=== PATIENT | female | born 1955 | race Caucasian/White ===

== ENCOUNTER → 2016-10-31 | Outpatient (CLI) | payer OTHER ==
[~2016-10-31] VITALS: Ht 157.5 cm; Wt 97.5 kg
--- NOTE | 2016-10-31 15:07 | RAD ---
Indication right breast mass highly suspect for malignancy. Note is made of recent diagnostic studies targeted to the right breast. Preliminary imaging was performed. Preliminary imaging was targeted to the 12:00 position of the breast. A hypoechoic shadowing vascular mass measuring approximately 2 cm in greatest dimension, highly suspect for malignancy, was identified. Injection Molding Machine Tender ultrasound images were saved. Subsequently preliminary images of the right axilla were obtained. Enlarged lymph nodes in the right axilla were seen. Image guided breast biopsy and axillary biopsy was discussed with the patient. The risks of infection and bleeding were outlined. The possibility of damage to nerves and/or blood vessels was discussed. The patient understood the risks associated with the procedure and wished to proceed. Initially the breast mass was approached. The skin was prepped and draped in the routine fashion. During this skin preparation the axilla was also cleansed. Local anesthesia was accomplished with 1% lidocaine. A 14-gauge coaxial biopsy system was utilized. Under ultrasound guidance 4 core samples were obtained. Following the breast biopsy a clip was deployed at the biopsy site. Subsequently the right axilla was approached. A separate needle was utilized and local anesthesia was accomplished with 1% lidocaine. An 18-gauge coaxial biopsy system was utilized. Under ultrasound guidance 4 core samples were obtained. The retrieved breast and axillary tissue was placed in separate formaldehyde cups and transferred to pathology. The patient tolerated the biopsy procedures unremarkably. Following the biopsy the patient was transferred to a dedicated mammographic suite and conventional mammographic images were obtained. Note is made of the biopsy clip appropriately positioned centrally in the dominant mass in the right breast. IMPRESSION: Successful ultrasound-guided biopsy of mass in the right breast and one of enlarged lymph nodes in the right axilla
--- NOTE | 2016-11-01 15:16 | PATHOLOGY ---
PATHOLOGY REPORT * * * * * * * * FINAL DIAGNOSIS: A. Breast, "right breast biopsy": - INFILTRATING DUCTAL CARCINOMA GRADE II, MEASURING 1.5 CM IN GREATEST DIMENSION. -Specimen type: biopsy -Tumor site: right breast -Tumor quantitation: 1.5cm -Histologic type: infiltrating ductal carcinoma -Histologic grade: 2 -Tubules, nuclei and mitoses: 3,2,1 -LVSI: none -Microcalcifications: none -Markers: ordered -Block: A1 - See comment. B. Soft tissue, "axillary nodule": - INFILTRATING DUCTAL CARCINOMA GRADE II, MEASURING 1.5 CM IN GREATEST DIMENSION. - 99% OF THE BIOPSY CONSISTS OF THE TUMOR, VERY FEW LYMPHOCYTES IDENTIFIED. - Suggest radiological and clinical correlation. - See comment COMMENT: This case is also reviewed by Dr. Brooke Auguste. This case was discussed with Dr. Jose Manuel Zamora on 11/01/2016. Predictive breast markers are ordered on block A1, and an additional report will follow. (SHA:[facility]; 11/01/2016) PROCEDURE REPORT (Order Date: 11/01/2016 13:53) COMMENT: Quantitative image analysis was performed on block A1. Please see next page for scanned image of results. PATHOLOGIST: Mame Soriano M.D. REPORT ELECTRONICALLY SIGNED BY: Mame Soriano M.D. DATE/TIME: 11/06/2016 10:25 REPORT ELECTRONICALLY SIGNED BY: Deon Daily M.D. DATE/TIME: 11/01/2016 15:15 * * * * * * * * GROSS PATHOLOGY: A. Received in formalin, labeled "Sheree Fulks", right breast" is a 1.8 x 0.8 x 0.2 cm aggregate of ferraro-yellow cylindrical fatty soft tissue cores. The specimen is submitted entirely in cassette A1. B. Received in formalin, labeled "Sheree Fulks, right axilla" is a 1.5 x 0.4 x 0.1 cm aggregate of white-ferraro cylindrical soft tissue cores. The specimen is submitted entirely in cassette B1. [place] [place] INITIAL CPT CODE(S): A; 39072, 81366(4) B; 02888 Professional services performed by [facility] at [address] [address] Technical services performed by [facility] at [address] [place] [address], [facility] [address] [place] [address]. SPECIMEN(S) RECEIVED: A.Right breast biopsy B.Axillary nodule CLINICAL HISTORY: Right breast and axillary nodule PATIENT: SHEREE WHITE /AGE: 911/03/1955 (Age: 60) PATIENT #: [id number] ALT CASE #: SPECIMEN COLLECTION DATE: 10/31/2016 SPECIMEN RECEIVED DATE: 10/31/2016 [facility] - [address] [place] [address] - PHONE: [phone] * * * END OF REPORT * * *
== END | disposition home or self-care (01) ==
LOC: US 12:26
PROVIDERS: ATTEND Surgery
DX: N63 Unspecified lump in breast (principal); I10 Essential (primary) hypertension
CPT/HCPCS: 19081; 76942; 88305; 88361; C1713; G0206; 77065

== ENCOUNTER 2016-12-11 08:03 | Day surgery (SDC) | payer OTHER ==
[~2016-12-11] VITALS: Ht 157.5 cm; Wt 97.5 kg
[~2016-12-11 08:03] MED LIST: AMLO10TA2 PO; ASPI-630 PO; HEPARIN SODIUM 5,000 UNIT in IV NORMAL SALINE 500ML BAG 500 ML IRR ONE; HYDROmorphone 2 MG/ML VIAL IV PRN; IV RINGERS,LACTATED 1000ML 1,000 ML IV SCH; LIDOCAINE 1% PF 2 ML VIAL. ID PRN; LISI1TAB5 PO; LORA10TA3 PO; LOVA20TA2 PO; MORPHINE SULFATE 2 MG/ML DISP.SYRIN. IV PRN; ONDANSETRON PF 4 MG/2 ML VIAL. IV PRN; PROCHLORPERAZINE 10 MG/2 ML VIAL. IV PRN; RANI150T2 PO; fentaNYL PF VIAL 100 MCG/2 ML VIAL IV PRN
[2016-12-11] MEDS ORDERED: LIDOCAINE 1% 20 ML VIAL. ONE (08:05)
[2016-12-11] MEDS ORDERED: PROPOFOL 20 ML IV ONE ×2 (08:26→09:35)
[2016-12-11] MEDS ORDERED: LIDOCAINE 2% PF Vial for OR 5 ML VIAL. ONE (08:26)
[2016-12-11] MEDS ORDERED: fentaNYL PF VIAL 100 MCG/2 ML VIAL ONE (08:26)
[2016-12-11] MEDS ORDERED: ePHEDrine PF IN SALINE 50 MG/5 ML DISP.SYRIN IV ONE ×2 (09:32→09:56)
[2016-12-11] MEDS ORDERED: ONDANSETRON PF 4 MG/2 ML VIAL. ONE (09:55)
[2016-12-11] MEDS ORDERED: PHENYLEPHRINE in 0.9% NACL PF 1 MG/10 ML DISP.SYRIN. IV ONE (10:03)
--- NOTE | 2016-12-11 10:32 | DISCH ---
DISCHARGE INSTRUCTIONS Condition on Discharge Condition on Discharge: Stable Activity After Discharge Activity Instructions for Disc: Other, see below Diet after Discharge Diet after Discharge: Regular Wound Incision Care Wound/Incision Care: Other, see below (keep port dressing clean and dry) Follow-Up Follow up with: Oncology office, call for appt NO LAY MD Dec 11, 2016 10:32
--- NOTE | 2016-12-11 10:35 | PDOC4 ---
Operative Note Operative Note Operative Note: Preoperative Diagnosis: Postoperative Diagnosis: Same Procedure: Placement of Power Port-A-Cath using SonoSite guidance Surgeon: Jake Anesthesia: Gen. EBL: 10 mL Specimen: None Drains: None Complications: None Indication: The patient is a 61 year old female who was recently diagnosed with right breast cancer. A request was made for placement of a Port-A-Cath to allow for chemotherapy treatment. The details and risks of the procedure were discussed. The risks include bleeding, infection, vessel injury, pneumothorax, pain, anesthetic risk, port, catheter or tubing malfunction or dysfunction, potential need for additional surgery or procedure. The patient understands and would like to proceed. Description: The patient was placed supine on the operating table and general anesthesia was performed. The bilateral neck and chest were prepped with ChloraPrep and draped in a standard surgical manner. With SonoSite ultrasound guidance the left internal jugular vein was readily identified and appeared patent. Entry was made into the vein with the skinny introducer needle under ultrasound guidance. The skinny guidewire passed readily into the central venous system. A small incision was made at the skin exit site. The skinny sheath was then placed over the guidewire. The larger guidewire was then placed within the sheath into the central venous system. Intraoperative fluoroscopy confirmed good position of the guidewire in the central venous system. The dilator and sheath were then placed over the guidewire. The catheter portion was then inserted into the central venous system and visualized using fluoroscopy. A separate left upper chest skin incision was made with a scalpel. A subcutaneous pocket was developed with cautery of sufficient size to accommodate the port. The catheter was then tunneled subcutaneously to the level of the newly formed pocket. Using fluoroscopy the catheter was positioned with the tip in the distal superior vena cava. The catheter was then cut and assembled to the port. The port was then secured to the chest wall with two 2-0 Prolene sutures. Using the Marino needle the port readily aspirated and flushed without difficulty. Fluoroscopy confirmed good positioning of the catheter with no twists or kinks. The subcutaneous tissue was approximated with 3-0 Vicryl. The skin was then closed with 4-0 Monocryl. A sterile OpSite dressing was then applied. The patient tolerated the procedure well and was sent to the recovery room in stable condition. At the end of the case all counts were correct. NO LAY MD Dec 11, 2016 10:35
[2016-12-11] MEDS ORDERED: HYDR-971 PO (11:27)
[2016-12-11] MEDS ORDERED: HYDROcodone/APAP 5/325MG 1 TAB TABLET PO PRN (11:45)
--- NOTE | 2016-12-11 12:12 | RAD ---
Portable chest, 12/11/2016: History: Postop Port-A-Cath placement Comparison is made to a study from 07/15/2008. A left Port-A-Cath is now in place extending into the superior vena cava. The heart size and pulmonary vascularity are normal. No pulmonary infiltrates are seen. There is no evidence of pleural fluid or pneumothorax. Mild spurring is present in the spine. IMPRESSION: 1. The left Port-A-Cath extends into the superior vena cava. 2. No acute cardiopulmonary abnormality is detected.
[2016-12-11 12:15] VITALS: BP 101/63
== END 2016-12-11 12:30 | disposition home or self-care (01) ==
LOC: SURG 08:03
PROVIDERS: ATTEND Surgery
DX: C50.911 Malignant neoplasm of unspecified site of right female breast (principal); I25.10 Atherosclerotic heart disease of native coronary artery without angina pectoris; E78.00 Pure hypercholesterolemia, unspecified; I10 Essential (primary) hypertension; K21.9 Gastro-esophageal reflux disease without esophagitis; M19.91 Primary osteoarthritis, unspecified site; Z72.89 Other problems related to lifestyle; Z98.51 Tubal ligation status; Z87.39 Personal history of other diseases of the musculoskeletal system and connective tissue; Z87.891 Personal history of nicotine dependence
CPT/HCPCS: 36556; 71010; C1788; J0690; J1644; J2370; J2405; J2704; J3010; J7040; 36561; J2001

== ENCOUNTER → 2016-12-13 | Outpatient (CLI) | payer MEDICAID, OTHER ==
[2016-12-11 12:15] VITALS: BP 101/63
[~2016-12-13] MED LIST changes: -HEPARIN SODIUM 5,000 UNIT in IV NORMAL SALINE 500ML BAG 500 ML IRR ONE; +HYDR-971 PO; -HYDROmorphone 2 MG/ML VIAL IV PRN; +IOHEXOL 240 MG/ML 50ML VIAL. PO ONE; +IOHEXOL 300 MG/ML 75 ML VIAL IV ONE; -IV RINGERS,LACTATED 1000ML 1,000 ML IV SCH; -LIDOCAINE 1% PF 2 ML VIAL. ID PRN; -MORPHINE SULFATE 2 MG/ML DISP.SYRIN. IV PRN; -ONDANSETRON PF 4 MG/2 ML VIAL. IV PRN; -PROCHLORPERAZINE 10 MG/2 ML VIAL. IV PRN; -fentaNYL PF VIAL 100 MCG/2 ML VIAL IV PRN
--- NOTE | 2016-12-13 12:52 | RAD ---
INDICATION: MALIGNANT NEOPLASM CENTRAL PORTION OF R BREAST COMPARISON: CT abdomen from 07/08/2005 TECHNIQUE: Axial CT images were obtained through the chest, abdomen and pelvis with intravenous contrast. FINDINGS: Chest: Within the partially visualized right breast there is a masslike structure identified superiorly measuring up to approximately 3.3 cm. Within the right axillary region there are some enlarged lymph nodes and a masslike structure measuring up to about 40 x 26 mm. Skin thickening of the right breast is seen. Left-sided port with tip in the SVC. Sub-4 mm nodule left upper lung along the fissure. No evidence of pneumothorax or focal airspace consolidation. Calcific atherosclerosis without thoracic aortic aneurysm. There may be some narrowing of the proximal aspect of the right brachiocephalic artery. There is a lucent lesion on the left side of the T9 vertebral body measuring up to 1.6 cm. There is also suspicion of a lucent lesion infiltrating the marrow of the T8 vertebral body measuring up to about 2 cm. Abdomen and pelvis: Severe calcific atherosclerosis without abdominal aortic aneurysm. No intrahepatic bile duct dilation or definite worrisome mass. No peripancreatic edema. Spleen unremarkable. No left-sided hydronephrosis. Urinary bladder is partially distended. Suspected fibroids within the uterus with some calcifications within. No right-sided hydronephrosis. Appendix does not appear inflamed. No dilated loops of bowel to suggest obstruction. Degenerative changes the spine. At the anterior aspect of the right humeral head there is a small lucent focus inferiorly measuring about 5 x 1 mm. There are some regions of heterogeneity within the marrow. Lucent lesion anterior aspect of L1 measuring up to about 9 mm. IMPRESSION: Masslike density is seen within the right breast in this patient with known mass within the region. There is also subcutaneous thickening of the skin within the right breast which could be secondary to neoplastic causes or posttreatment changes. Enlarged lymph nodes within the right axilla with a right axillary mass. Given the patient's known right breast mass this is concerning for axillary lymph node involvement. Within the thoracic and lumbar spine there are some lucent lesions identified. These have an indeterminate appearance and although it is possible that a benign lesion such as hemangioma can have this appearance, neoplastic causes for metastatic disease is in the differential for this finding. Further workup options include either bone scan or MRI. In addition there is a possible tiny lucent lesion at the anterior aspect of the right proximal femur although this could be degenerative in nature as well. Severe calcific atherosclerosis. Fibroid uterus. Tiny pulmonary nodule. Follow-up will be needed to ensure no growth given the patient's history. PQRS Compliance Statement: One or more of the following individualized dose reduction techniques were utilized for this examination: 1. Automated exposure control 2. Adjustment of the mA and/or kV according to patient size 3. Use of iterative reconstruction technique
--- NOTE | 2016-12-13 13:52 | RAD ---
INDICATION:Staging breast cancer COMPARISON: CT from earlier same day FINDINGS: 27 mCi technetium 99 M MDP injected intravenously. Time was allowed for osseous uptake and scintigraphic images were obtained of the osseous structures. There is expected radiotracer uptake within the osseous structures as well as urinary excretion. There is some increased radiotracer uptake within the right breast which could be secondary to the patient's known lesion within the area. At the right side of the calvarium posteriorly there is a small focus of increased radiotracer uptake. There is some patchy uptake seen within the spine both within the thoracic region as well as increased uptake seen at the lower lumbar spine. There is a focus of increased radiotracer uptake in the left maxillary region. Foci of increased radiotracer uptake are seen within the bilateral elbows. Focus of increased radiotracer uptake is seen within the midshaft of the right humerus. Multiple foci of increased radiotracer uptake are seen within the lower extremities including adjacent to the knee bilaterally as well as within the bilateral ankle and foot. IMPRESSION: Multiple foci of increased radiotracer uptake are seen within the major joints including the bilateral knees, elbows, feet and ankles. This could be increased uptake related to degenerative changes but it may be helpful to obtain dedicated imaging of the region to ensure that there is not an alternative causes such as a lesion in the area. Focus of increased radiotracer uptake in the left maxillary region. There is also a focus of increased radiotracer uptake in the right side of the calvarium posteriorly. Would obtain dedicated cross-sectional imaging through the area with CT to ensure that there is not lesions within the area contributing to this appearance. There is some patchy uptake seen within the thoracic and lumbar spine. This could be degenerative in nature but given the lucent lesion seen in the thoracic and lumbar spine on CT would consider obtaining a thoracic and lumbar spine MRI with and without contrast to further evaluate and ensure that these lucent lesions are not from metastatic disease. Focus of increased radiotracer uptake is seen within the right humerus. Would obtain dedicated imaging of the humerus to ensure that there is not a lesion in this area.
== END | disposition home or self-care (01) ==
LOC: NM 07:22
PROVIDERS: ATTEND Internal Medicine Hematology & Oncology
DX: N63.10 Unspecified lump in the right breast, unspecified quadrant (principal); C50.911 Malignant neoplasm of unspecified site of right female breast; I70.8 Atherosclerosis of other arteries; D25.9 Leiomyoma of uterus, unspecified; R59.9 Enlarged lymph nodes, unspecified; Z17.0 Estrogen receptor positive status [ER+]
CPT/HCPCS: 71260; 74177; 78306; 96374; A9503; Q9966; Q9967

== ENCOUNTER → 2016-12-16 | Outpatient (CLI) | payer OTHER ==
[2016-12-11 12:15] VITALS: BP 101/63
[~2016-12-16] MED LIST changes: -IOHEXOL 240 MG/ML 50ML VIAL. PO ONE; -IOHEXOL 300 MG/ML 75 ML VIAL IV ONE
--- NOTE | 2016-12-16 10:01 | CARD ---
APPROVED REPORT EXAM: Two-dimensional and M-mode echocardiogram with Doppler and color Doppler. Other Information Quality : Good INDICATION Breast Cancer LEFT VENTRICLE The left ventricular systolic function is normal and the ejection fraction is within normal range. Th e Ejection Fraction is 60-65%. There is normal LV segmental wall motion. RIGHT VENTRICLE The right ventricle is normal size. The right ventricular systolic function is normal. ATRIA The left atrium size is normal. The right atrium size is normal. GREAT VESSELS The aortic root is normal in size. PERICARDIAL EFFUSION There is no evidence of significant pericardial effusion. Critical Notification Critical Value: No <Conclusion> The left ventricular systolic function is normal and the ejection fraction is within normal range. Th e Ejection Fraction is 60-65%. There is normal LV segmental wall motion. Mildly decreased global longitudinal strain values, if there are plans for continued chemotherapy, co nsider repeat echo in 3 months, otherwise, routine f/u.
== END ==
LOC: ECHO 08:28
PROVIDERS: ATTEND Internal Medicine Hematology & Oncology
DX: C50.111 Malignant neoplasm of central portion of right female breast (principal); Z17.0 Estrogen receptor positive status [ER+]
CPT/HCPCS: 93308

== ENCOUNTER 2017-01-22 06:59 | Observation (INO) | payer OTHER ==
[2017-01-22] VITALS (7 sets, daily range): BP systolic 132–177; BP diastolic 59–78
[~2017-01-22] VITALS: Ht 157.5 cm; Wt 99.5 kg
[2017-01-22] MEDS ORDERED: ONDANSETRON PF 4 MG/2 ML VIAL. IV PRN ×2 (07:00→11:45)
[2017-01-22] MEDS ORDERED: IV RINGERS,LACTATED 1000ML 1,000 ML IV SCH (07:00)
[2017-01-22] MEDS ORDERED: PROCHLORPERAZINE 10 MG/2 ML VIAL. IV PRN (07:00)
[2017-01-22] MEDS ORDERED: fentaNYL PF VIAL 100 MCG/2 ML VIAL IV PRN (07:00)
[2017-01-22] MEDS ORDERED: LIDOCAINE 1% PF 2 ML VIAL. ID PRN (07:00)
[2017-01-22] MEDS ORDERED: HYDROmorphone 2 MG/ML VIAL IV PRN ×2 (07:00→11:45)
[2017-01-22] MEDS ORDERED: ISOSULFAN BLUE 50 MG/5 ML VIAL. SQ ONE (07:12)
[2017-01-22] MEDS ORDERED: LIDOCAINE 2% PF Vial for OR 5 ML VIAL. ONE (08:12)
[2017-01-22] MEDS ORDERED: ONDANSETRON PF 4 MG/2 ML VIAL. ONE (08:12)
[2017-01-22] MEDS ORDERED: PROPOFOL 20 ML IV ONE (08:12)
[2017-01-22] MEDS ORDERED: DEXAMETHASONE SOD PHOS 20 MG/5 ML VIAL. ONE (08:12)
[2017-01-22] MEDS ORDERED: fentaNYL PF VIAL 100 MCG/2 ML VIAL ONE (08:12)
[2017-01-22] MEDS ORDERED: MIDAZOLAM HCL/PF 2 MG/2 ML VIAL. ONE (08:13)
[2017-01-22] MEDS ORDERED: PHENYLEPHRINE in 0.9% NACL PF 1 MG/10 ML DISP.SYRIN. IV ONE (09:29)
[2017-01-22] MEDS ORDERED: SEVOFLURANE > 120 MINUTES. IH ONE (09:43)
[2017-01-22] MEDS: IV 1/2 NORMAL SALINE 1,000 ML IV SCH (11:39)
--- NOTE | 2017-01-22 11:39 | PDOC4 ---
Operative Note Operative Note Operative Note: Preoperative Diagnosis: Metastatic right breast cancer Postoperative Diagnosis: Same Procedure: Right modified radical mastectomy Surgeon: Jake Watters.: Noni BRADSHAW Anesthesia: Gen. EBL: 75 mL Specimen: Right breast, axillary contents to pathology Drains: 19 [place] round Don drain to right chest wall Complications: None Findings: Extensive tumor involvement of breast and axilla, encasement of right axillary vein with tumor Indication: The patient is a 61-year-old female who was diagnosed with right breast cancer. Her full evaluation has shown metastatic disease. There were initial plans for neoadjuvant chemotherapy however even the current situation Dr. Lemus recommended proceeding with surgery. The plan is for right modified radical mastectomy. The details and risks of surgery were discussed with the patient. The risks include bleeding, infection, wound healing problems, anesthetic risk, pain, scar tissue, potential need for additional surgery or procedure. She understands and would like to proceed. Description: The patient was taken to the operating room and placed supine on the operating table. Gen. anesthesia was performed. The right breast and axilla were prepped with ChloraPrep and draped in a standard surgical manner. An elliptical incision was made around the nipple areolar complex extending medially to the axilla. We began developing the superior flap first freeing the breast parenchyma away from the skin. This was carried to the level just below the clavicle. We then in a similar manner developed the inferior flap the skin from the deeper breast tissue with cautery. In a medial to lateral fashion the breast was then taken off of the chest wall using cautery. Several blood vessels that were encountered were readily controlled with cautery. Care was taken to ensure excision of the axillary tail of breast tissue. A stitch was used to corrine the 12 o'clock position of the breast and was sent off to pathology for evaluation. We then began with the axillary dissection. There was obvious palpable firm bulky tumor present in the axilla. We began trying to establish the margins of the axillary dissection. Muscle represented the medial extent of dissection with the latissimus lateral portion. Superiorly however there was fairly extensive tumor extension. With careful dissection it appeared that the tumor casing the axillary vein and not able to be . Given the presence of metastatic disease it did not seem appropriate to resect the vein. With the Harmonic scalpel the contents were divided just below the level of the axillary vein. The remaining involved axillary tissue was freed away from the surrounding tissue and sent off as a specimen. A few blood vessels supplying the contents were ligated with 2-0 Vicryl. Hemostasis was then good. A 19 [place] round Don drain was placed in the right chest wall which exited inferiorly. This was secured to the skin with 2-0 silk. The subcutaneous tissue was closed with interrupted 3-0 Vicryl. The skin was closed with 4-0 Monocryl suture. A sterile OpSite dressing was then applied. The patient tolerated the procedure well and was sent to the recovery room in stable condition. At the end of the case all counts were correct. NO LAY MD Jan 22, 2017 11:39
[2017-01-22] MEDS ORDERED: HYDROcodone/APAP 5/325MG 1 TAB TABLET PO PRN (11:45)
[2017-01-22] MEDS ORDERED: 0.9 % SODIUM CHLORIDE 10 ML DISP.SYRIN. IV PRN (11:45)
[2017-01-22] MEDS: fentaNYL PF VIAL 100 MCG/2 ML VIAL IV PRN ×2 (11:56→12:15)
[2017-01-22] MEDS: MORPHINE SULFATE 2 MG/ML DISP.SYRIN. IV PRN ×2 (12:23→12:44)
[2017-01-22] MEDS: amLODIPine BESYLATE 10 MG TABLET PO SCH (14:22)
[2017-01-22] MEDS: hydroCHLOROthiazide 12.5 MG CAPSULE PO SCH (14:37)
[2017-01-22] MEDS: ASPIRIN CHEWABLE 81 MG TABLET. PO SCH (14:38)
[2017-01-22] MEDS: HYDROcodone/APAP 5/325MG 1 TAB TABLET PO PRN ×2 (14:38→21:04)
[2017-01-22] MEDS: CETIRIZINE HCL 10 MG TABLET. PO SCH (14:38)
[2017-01-22] MEDS: LISINOPRIL 20 MG TABLET PO SCH (14:38)
[2017-01-22] MEDS ORDERED: ATORVASTATIN CALCIUM 10 MG TABLET. PO SCH (21:00)
[2017-01-22] MEDS: FAMOTIDINE 20 MG TABLET. PO SCH (21:01)
[2017-01-23] MEDS: IV 1/2 NORMAL SALINE 1,000 ML IV SCH (00:59)
[2017-01-23 03:00] VITALS: BP 154/92
[2017-01-23] MEDS: HYDROcodone/APAP 5/325MG 1 TAB TABLET PO PRN ×2 (06:39→12:38)
[2017-01-23 07:00] VITALS: BP 148/79
[2017-01-23] MEDS ORDERED: NON FORMULARY ITEM (Lisinopril/Hydrochlorothiazide (Lisinopril-Hctz 20-12.5 Mg Tab) 1 TAB) PO SCH (09:00)
[2017-01-23] MEDS ORDERED: FLU VACC QS2017-18 (36MOS+)/PF 0.5 ML SYRINGE. VAX IM ONE (09:00)
[2017-01-23] MEDS ORDERED: LISINOPRIL 20 MG TABLET PO SCH (09:00)
[2017-01-23] MEDS: FAMOTIDINE 20 MG TABLET. PO SCH (09:03)
[2017-01-23] MEDS: hydroCHLOROthiazide 12.5 MG CAPSULE PO SCH (09:03)
[2017-01-23] MEDS: LISINOPRIL 20 MG TABLET PO SCH (09:05)
[2017-01-23] MEDS: amLODIPine BESYLATE 10 MG TABLET PO SCH (09:05)
[2017-01-23] MEDS: CETIRIZINE HCL 10 MG TABLET. PO SCH (09:06)
[2017-01-23] MEDS: ASPIRIN CHEWABLE 81 MG TABLET. PO SCH (09:06)
[2017-01-23 11:00] VITALS: BP 150/73
--- NOTE | 2017-01-23 12:50 | PDOC ---
PROGRESS NOTES Subjective Subjective doing ok Objective Objective Vital Signs Date Time Temp Pulse Resp B/P (MAP) Pulse Ox O2 Delivery O2 Flow Rate FiO2 01/23/17 12:38 16 Room Air 01/23/17 11:00 98.6 78 150/73 (98) 94 98.6 01/23/17 03:00 2.0 Intake and Output 01/23/17 07:00 Intake Total 1450 ml Output Total 706 ml Balance 744 ml Intake IV Total 1450 ml Output Urine Total 351 ml Drainage Total 280 ml Estimated Blood Loss 75 ml Physical Exam Physical Exam dressing clean and dry, HERLINDA with sanguinous output Assessment Assessment POD 1 R MRM Plan Plan of Care ok to discharge Comment Review of Relevant I have reviewed the following items corrine (where applicable) has been applied. Medications Current Medications Cefazolin Sodium/ Dextrose 50 ml @ 100 mls/hr 1X PREOP PRN IV PRIOR TO SURGERY Last administered on 01/22/17 08:50; Start 01/22/17 at 08:00 Ondansetron HCl (Zofran) 4 mg PRN Q6HRS PRN IV NAUSEA/VOMITING; Start 01/22/17 at 07:00; Stop 01/23/17 at 06:59; Status DC Fentanyl Citrate (Fentanyl 2ml Vial) 25 mcg PRN Q5MIN PRN IV MILD PAIN; Start 01/22/17 at 07:00; Stop 01/23/17 at 06:59; Status DC Fentanyl Citrate (Fentanyl 2ml Vial) 50 mcg PRN Q5MIN PRN IV MODERATE PAIN Last administered on 01/22/17 12:15; Start 01/22/17 at 07:00; Stop 01/23/17 at 06:59; Status DC Morphine Sulfate 1 mg PRN Q10MIN PRN IV SEVERE PAIN Last administered on 12:44; Start 01/22/17 at 07:00; Stop 01/23/17 at 06:59; Status DC Ringer's Solution 1,000 ml @ 30 mls/hr Q24H IV Last administered on 01/22/17 07:44; Start 01/22/17 at 07:00; Stop 01/22/17 at 18:59; Status DC Lidocaine HCl (Xylocaine-Mpf 1% Vial) 2 ml PRN 1X PRN ID IV START; Start at 07:00; Stop 01/23/17 at 06:59; Status DC Hydromorphone HCl (Dilaudid) 0.5 mg PRN Q10MIN PRN IV SEV PAIN, Second choice; Start 01/22/17 at 07:00; Stop 01/23/17 at 06:59; Status DC Prochlorperazine Edisylate (Compazine) 5 mg PACU PRN PRN IV NAUSEA, MRX1 Last administered on 01/22/17t 11:56; Start 01/22/17 at 07:00; Stop 01/23/17 at 06:59 ; Status DC Isosulfan Blue (Isosulfan Blue) 50 mg STK-MED ONCE SQ ; Start 01/22/17 at 07:12 ; Stop 01/22/17 at 07:13; Status DC Dexamethasone Sodium Phosphate (Decadron) 20 mg STK-MED ONCE .ROUTE ; Start 01/22/17 at 08:12; Stop 01/22/17 at 08:13; Status DC Ondansetron HCl (Zofran) 4 mg STK-MED ONCE .ROUTE ; Start 01/22/17 at 08:12; Stop 01/22/17 at 08:13; Status DC Propofol 20 ml @ As Directed STK-MED ONCE IV ; Start 01/22/17 at 08:12; Stop at 08:13; Status DC Lidocaine HCl (Lidocaine Pf 2% Vial) 5 ml STK-MED ONCE .ROUTE ; Start 01/22/17 at 08:12; Stop 01/22/17 at 08:13; Status DC Fentanyl Citrate (Fentanyl 2ml Vial) 100 mcg STK-MED ONCE .ROUTE ; Start at 08:12; Stop 01/22/17 at 08:13; Status DC Midazolam HCl (Versed) 2 mg STK-MED ONCE .ROUTE ; Start 01/22/17 at 08:13; Stop 01/22/17 at 08:14; Status DC Phenylephrine HCl 1 mg STK-MED ONCE IV ; Start 01/22/17 at 09:29; Stop 01/22/17 at 09:30; Status DC Sevoflurane (Ultane) 90 ml STK-MED ONCE IH ; Start 01/22/17 at 09:43; Stop 01/22 at 09:44; Status DC Sodium Chloride (Normal Saline Flush) 3 ml QSHIFT PRN IV AFTER MEDS AND BLOOD DRAWS; Start 01/22/17 at 11:45 Sodium Chloride 1,000 ml @ 75 mls/hr [id number] IV Last administered on 11:39; Start 01/22/17 at 11:39; Stop 01/23/17 at 02:37; Status DC Acetaminophen/ Hydrocodone Bitart (Lortab 5/325) 1 tab PRN Q4HRS PRN PO MILD PAIN; Start 01/22/17 at 11:45 Acetaminophen/ Hydrocodone Bitart (Lortab 5/325) 2 tab PRN Q4HRS PRN PO MODERATE PAIN, SEVERE PAIN Last administered on 01/23/17 12:38; Start 01/22/17 at 11:45 Hydromorphone HCl (Dilaudid) 0.2 mg PRN Q1HR PRN IV PAIN; Start 01/22/17 at 11: 45 Ondansetron HCl (Zofran) 4 mg PRN Q6HRS PRN IV NAUESA, 1ST CHOICE; Start at 11:45 Amlodipine Besylate (Norvasc) 10 mg DAILY PO Last administered on 01/23/17 09: 05; Start 01/22/17 at 15:00 Aspirin (Children'S Aspirin) 81 mg DAILY PO Last administered on 01/23/17 09: 06; Start 01/22/17 at 15:00 Non-Formulary Medication 1 tab DAILY PO ; Start 01/23/17 at 09:00; Status UNV Cetirizine HCl (ZyrTEC) 10 mg DAILY PO Last administered on 01/23/17 09:06; Start 01/22/17 at 15:00 Atorvastatin Calcium (Lipitor) 5 mg QHS PO Last administered on 01/22/17 21:03 ; Start 01/22/17 at 21:00 Famotidine (Pepcid) 20 mg BID PO Last administered on 01/23/17 09:03; Start 01/22/17 at 21:00 Lisinopril (Prinivil) 20 mg DAILY PO ; Start 01/23/17 at 09:00; Stop 01/23/17 at 09:00; Status DC Hydrochlorothiazide (Microzide) 12.5 mg DAILY PO Last administered on 09:03; Start 01/22/17 at 15:00 Lisinopril (Prinivil) 20 mg DAILY PO Last administered on 01/23/17 09:05; Start 01/22/17 at 15:00 Influenza Virus Vaccine Quadrival (Fluarix Quad [id number] Syringe) 0.5 ml ONCE ONCE VAX IM Last administered on 01/23/17 09:10; Start 01/23/17 at 09:00; Stop 01/23/17 at 09:01; Status DC Active Scripts Active Reported Loratadine 10 Mg Tablet 10 Mg PO DAILY Aspirin 81 Mg Tab.chew 81 Mg PO DAILY Ranitidine Hcl 150 Mg Tablet 150 Mg PO BID Lovastatin 20 Mg Tablet 20 Mg PO HS Amlodipine Besylate 10 Mg Tablet 10 Mg PO DAILY Lisinopril-Hctz 20-12.5 Mg Tab (Lisinopril/Hydrochlorothiazide) 1 Each Tablet 1 Tab PO DAILY Vitals/I & O Vital Sign - Last 24 Hours 01/22/17 01/22/17 01/22/17 01/22/17 13:00 13:00 13:15 13:30 Temp 96.8 96.8 96.8 96.8 Pulse 88 88 93 91 Resp 18 18 18 18 B/P (MAP) 177/70 (105) 177/70 (105) 132/64 (86) 173/70 (104) Pulse Ox 97 97 97 97 O2 Delivery Room Air Room Air Room Air Room Air 01/22/17 01/22/17 01/22/17 01/22/17 13:45 14:38 14:38 15:00 Temp 98.1 98.1 Pulse 91 91 76 Resp 18 16 B/P (MAP) 149/70 (96) 149/70 145/59 (87) Pulse Ox 96 97 O2 Delivery Room Air Nasal Cannula Nasal Cannula O2 Flow Rate 2.0 2.0 01/22/17 01/22/17 01/22/17 01/22/17 16:44 17:19 19:00 20:00 Temp 98.1 98.1 Pulse 92 Resp 20 B/P (MAP) 148/78 (101) Pulse Ox 96 100 O2 Delivery Nasal Cannula Nasal Cannula Nasal Cannula O2 Flow Rate 2.0 2.0 2.0 2.0 12/601/22/17 01/23/17 01/23/17 21:04 23:00 03:00 06:39 Temp 98.1 98.7 98.1 98.7 Pulse 96 66 Resp 18 20 18 18 B/P (MAP) 148/75 (99) 154/92 (112) Pulse Ox 100 92 O2 Delivery Nasal Cannula Nasal Cannula Nasal Cannula Room Air O2 Flow Rate 2.0 2.0 2.0 01/23/17 01/23/17 01/23/17 01/23/17 07:00 07:39 09:05 09:05 Temp 96.6 96.6 Pulse 73 73 73 Resp 17 16 B/P (MAP) 148/79 (102) 148/73 148/79 Pulse Ox 99 O2 Delivery Room Air Room Air 01/23/17 01/23/17 11:00 12:38 Temp 98.6 98.6 Pulse 78 Resp 18 16 B/P (MAP) 150/73 (98) Pulse Ox 94 O2 Delivery Room Air Room Air Intake and Output 01/22/17 01/22/17 01/23/17 15:00 23:00 07:00 Intake Total 1450 ml Output Total 125 ml 460 ml 121 ml Balance 1325 ml -460 ml -121 ml NO LAY MD Jan 23, 2017 12:50
--- NOTE | 2017-01-23 12:52 | DISCH ---
DISCHARGE INSTRUCTIONS Condition on Discharge Condition on Discharge: Stable Activity After Discharge Activity Instructions for Disc: Activity as tolerated Diet after Discharge Diet after Discharge: Regular Wound Incision Care Wound/Incision Care: Other, see below (keep dressing clean and dry, home HERLINDA drain care per nurses instructions) Follow-Up Follow up with: Dr Lay in 1 week in office, call for appt [phone] NO LAY MD Jan 23, 2017 12:52
--- NOTE | 2017-01-23 12:54 | PDOC3 ---
Discharge Summary Visit Information Date of Admission: Jan 22, 2017 Date of Discharge: Jan 23, 2017 Admitting Diagnosis: R breast cancer Final Diagnosis R breast cancer Brief Hospital Course Allergies Allergies Coded Allergies Type Severity Reaction Last Updated Verified No Known Drug Allergies 01/22/17 No Vital Signs Vital Signs Date Time Temp Pulse Resp B/P (MAP) Pulse Ox O2 Delivery O2 Flow Rate FiO2 01/23/17 12:38 16 Room Air 01/23/17 11:00 98.6 78 150/73 (98) 94 98.6 01/23/17 03:00 2.0 Brief Hospital Course Ms. Easton is a 61 old female who presented with right breast cancer. She underwent a right modified radical mastectomy on 01/22/17. Her postoperative recovery was uneventful and she was discharged on POD 1. Discharge Information Condition at Discharge: Stable Follow Up: Weeks (1 week) Disposition/Orders: D/C to Home Scheduled Amlodipine Besylate (Amlodipine Besylate), 10 MG PO DAILY, (Reported) Aspirin (Aspirin), 81 MG PO DAILY, (Reported) Lisinopril/Hydrochlorothiazide (Lisinopril-Hctz 20-12.5 Mg Tab), 1 TAB PO DAILY, (Reported) Loratadine (Loratadine), 10 MG PO DAILY, (Reported) Lovastatin (Lovastatin), 20 MG PO HS, (Reported) Ranitidine Hcl (Ranitidine Hcl), 150 MG PO BID, (Reported) Discontinued Medications Hydrocodone/Apap 5-325 ([place] 5-325 Tablet), 1 TAB PO Q4HRS, (Reported) NO LAY MD Jan 23, 2017 12:54
[2017-01-23] MEDS ORDERED: HEPARIN PF 500 UNIT/5 ML DISP.SYRIN. IV ONE (15:45)
--- NOTE | 2017-01-28 10:09 | PATHOLOGY ---
PATHOLOGY REPORT * * * * * * * * FINAL DIAGNOSIS: A. Breast, right modified radical mastectomy: - INVASIVE DUCTAL CARCINOMA, HIGH-GRADE, WITH FOCAL LOBULAR FEATURES, FORMING A TUMOR MASS OF THE JUNCTION OF THE UPPER OUTER AND UPPER INNER QUADRANTS MEASURING UP TO 5.7 CM IN GREATEST DIMENSION. SEE SYNOPTIC REPORT. - INVASIVE CARCINOMA IS APPROXIMATELY 0.4 CM FROM THE CLOSEST ANTEROSUPERIOR MARGIN OF RESECTION. - DEEP MARGIN OF RESECTION NEGATIVE FOR TUMOR. - FOCAL LYMPHOVASCULAR TUMOR INVASION IDENTIFIED. - METASTATIC CARCINOMA INVOLVING INTRAMAMMARY LYMPH NODE OF UPPER OUTER QUADRANT (/). - Fibrocystic changes, focal. - Sclerosing adenosis, focal. B. Right axillary contents: - METASTATIC POORLY DIFFERENTIATED ADENOCARCINOMA, FORMING AN AXILLARY MASS MEASURING 5.7 CM IN GREATEST DIMENSION, WITH EXTENSIVE TUMOR INFILTRATION OF EXTRANODAL SOFT TISSUES, LYMPHOVASCULAR TUMOR INVASION, AND PERINEURAL TUMOR INVASION. - METASTATIC POORLY DIFFERENTIATED ADENOCARCINOMA INVOLVING THREE OF THREE AXILLARY LYMPH NODES (3/3), WITH PERINODAL TUMOR INFILTRATION AND LYMPHOVASCULAR TUMOR INVASION. (JPM:mgr; 01/27/2017) SYNOPTIC CANCER STAGING REPORT CLINICAL Clinical History: Palpable mass Radiologic Finding: Mass or architectural distortion SPECIMEN Procedure: Total mastectomy (including nipple and skin) Lymph Node Sampling: Axillary dissection (partial or complete dissection) Lymph nodes present within the breast specimen (i.e., intramammary lymph nodes) Specimen Laterality: Right TUMOR Primary Tumor Site: Invasive Carcinoma: Upper outer quadrant Upper inner quadrant Presence of Invasive Carcinoma: Histologic Type: Invasive mammary carcinoma of no special type (ductal, not otherwise specified) Histologic Grade (Horn[place] Histologic Score): Glandular (Acinar) / Tubular Differentiation: Score 3 (< 10% of tumor area forming glandular / tubular structures) Nuclear Pleomorphism: Score 3 (Vesicular nuclei, often with prominent nucleoli, exhibiting marked variation in size and shape, occasionally with very large and bizarre forms) Mitotic Rate: Score 2 (4-7 mitoses per mm2) Overall Grade: Grade 3 (scores of 8 or 9) Ductal Carcinoma In Situ (DCIS): DCIS is present Negative for extensive intraductal component (EIC) Architectural Patterns: Solid Nuclear Grade (see Table 2 in CAP Protocol): Grade III (high) Necrosis: Present, central (expansive "comedo" necrosis) Lobular Carcinoma In Situ (LCIS): Not identified Tumor Size: Size of Largest Invasive Carcinoma: Greatest dimension of largest focus of invasion > 1 mm Greatest Dimension (mm): 57 Accessory Tumor Findings Lymph-Vascular Invasion: Present Dermal Lymph-Vascular Invasion: Not identified Microcalcifications: Present in nonneoplastic tissue Treatment Effect: Response to Presurgical (Neoadjuvant) Therapy: No known presurgical therapy MARGINS Invasive Carcinoma: Margins uninvolved by invasive carcinoma Distance from Closest Margin: Distance (specify in mm): 4 Closest Uninvolved Margin: Other (specify margin): Anterosuperior margin. Ductal Carcinoma In Situ (DCIS): Margins uninvolved by DCIS (DCIS present in specimen) Distance of DCIS from Closest Margin (mm): Distance is > 10 mm Closest Uninvolved Margin(s): Other (specify margin): Anterosuperior margin. LYMPH NODES Regional Lymph Nodes: Number of Lymph Node(s) Examined (sentinel and nonsentinel): Number cannot be determined: At least 5; There is a large axillary mass which likely represents matted lymph nodes with extensive perinodal extension. Lymph Node Involvement: Number of Lymph Nodes with Macrometastases (> 2 mm): At least: 5 Number of Lymph Nodes with Micrometastases (> 0.2 mm to 2 mm and / or > 200 cells): Specify number: 0 Number of Lymph Nodes with Isolated Tumor Cells (<= 0.2 mm and <= 200 cells): Specify number: 0 Size of Largest Tumor Deposit: Specify (mm): 57 Extranodal Extension: Present STAGE (PTNM) Primary Tumor (Invasive Carcinoma) (pT): pT3: Tumor > 50 mm in greatest dimension Category (pN): pN2a: Metastases in 4 to 9 axillary lymph nodes (at least 1 tumor deposit greater than 2 mm) # ADDITIONAL FINDINGS Additional Pathologic Findings: See diagnoses. REPORT ELECTRONICALLY SIGNED BY: Tripp Blanco M.D. DATE/TIME: 01/28/2017 10:08 * * * * * * * * GROSS PATHOLOGY: A. Received in formalin labeled "right breast" and consists of a 1850 g breast specimen oriented per requisition slip with "stitch at 12:00" with breast tissue measuring 27 cm L-M, 24 cm S-I, and 8.5 cm A-P. The anterior skin ellipse measures 26.0 x 15.0 cm. The everted nipple measures 1.6 cm in diameter. The deep margin is intact with no obvious skeletal muscle identified. The specimen is inked as follows posterior black, anterosuperior blue, and anteroinferior green. Sectioning reveals a solid farrar white mass with ill-defined borders at approximately 12:00 (border of upper outer and upper inner quadrant) that measures 5.7 x 5.5 x 4.2 cm. The following measurements of mass to margins are obtained: Anterosuperior 0.3 cm, superior 8.0 cm, posterior 4.0 cm, anterior 2.0 cm, and all other margins 5.0 cm or greater. There is a small white nodule identified in the upper outer quadrant that measures 0.4 x 0.2 x 0.3 cm and grossly clears all margins by 3.5 cm or greater. The large mass and nodule are by a distance of 7.0 cm. The remaining breast parenchyma is farrar-white, pink, with no other masses or lesions identified. The cold ischemic time is 1 minute. The formalin fixation time is approximately 36 hours. Photo Intern sections are submitted [id number]. A1 nipple A2 anterosuperior and anteroinferior cutaneous margins A3-A4 large mass with relationship to anterosuperior margin A5 additional large mass A6 deep margin nearest larger mass A7 nodule in upper outer quadrant A8 upper outer quadrant A9 lower outer quadrant A 10 lower inner quadrant B. Received in formalin labeled "right axillary contents" and consists of a 101 g, 8.5 x 8.2 x 5.3 cm portion of fibroadipose tissue. Sectioning reveals a large lobulated solid farrar white lymph node candidate versus matted lymph nodes that measure 5.7 x 5.4 x 3.5 cm. There are 2 additional solid white lymph node candidates identified that measure 1.9 x 1.2 x 1.0 cm and 2.6 x 2.3 x 1.9 cm. No additional lymph node candidates, masses, or lesions are identified. Photo Intern sections are submitted B1-B8. B1-B4 large lymph node candidate, telemarketing sales representative B5-B6 one lymph node candidate B7-B8 one lymph node candidate (ANTIONETTE; 01/23/2017) INITIAL CPT CODE(S): 77619, 17203 Professional services performed [place] [facility] [address] Technical services performed by [facility] at [address] [place] [address], [facility] [address], [place] [address]. SPECIMEN(S) RECEIVED: A.Right breast B.Right axillary contents CLINICAL HISTORY: Right breast cancer PATIENT: YASMANI WHITE /AGE: 911/03/1955 (Age: 61) PATIENT #: [id number] ALT CASE #: SPECIMEN COLLECTION DATE: 01/22/2017 SPECIMEN RECEIVED DATE: 01/22/2017 [facility] - [id number] [place] [address] - PHONE: [phone] * * * END OF REPORT * * *
== END 2017-01-23 16:15 | disposition home or self-care (01) ==
LOC: SURG 06:59 → 4 NORTH 11:39
PROVIDERS: ADMIT Surgery; ATTEND Surgery
DX: C50.911 Malignant neoplasm of unspecified site of right female breast (principal)
CPT/HCPCS: 19307; 90471; 90686; 96374; 97161; G0378; G0379; J0690; J0780; J1100; J2250; J2270; J2370; J2405; J2704; J3010; J7120; Q9968; J2001

== ENCOUNTER → 2017-04-15 | Outpatient (CLI) | payer OTHER | END | disposition home or self-care (01) | LOC: RAD 14:54 | DX: R05 Cough (principal) | CPT/HCPCS: 71046 ==

== ENCOUNTER → 2017-04-22 | Outpatient (CLI) | payer OTHER ==
[2017-04-22] MEDS: IOHEXOL 300 MG/ML 100ML VIAL. IV (09:16)
== END | disposition home or self-care (01) ==
LOC: CT 08:56
DX: R91.1 Solitary pulmonary nodule (principal); R91.8 Other nonspecific abnormal finding of lung field; Z85.3 Personal history of malignant neoplasm of breast; Z90.11 Acquired absence of right breast and nipple; Z98.890 Other specified postprocedural states
CPT/HCPCS: 71260; Q9967

== ENCOUNTER → 2017-05-28 | Outpatient (CLI) | payer OTHER ==
[~2017-05-28] MED LIST changes: -AMLO10TA2 PO; -ASPI-630 PO; +HEPARIN PF 500 UNIT/5 ML DISP.SYRIN. IV; -HYDR-971 PO; +IOHEXOL 240 MG/ML 50ML VIAL. PO; +IOHEXOL 300 MG/ML 100ML VIAL. IV; -LISI1TAB5 PO; -LORA10TA3 PO; -LOVA20TA2 PO; -RANI150T2 PO
== END | disposition home or self-care (01) ==
LOC: NM 14:30
DX: C50.111 Malignant neoplasm of central portion of right female breast (principal); C79.51 Secondary malignant neoplasm of bone; I10 Essential (primary) hypertension; E11.9 Type 2 diabetes mellitus without complications; R91.8 Other nonspecific abnormal finding of lung field; Z17.0 Estrogen receptor positive status [ER+]; Z90.11 Acquired absence of right breast and nipple; Z87.891 Personal history of nicotine dependence; Z85.3 Personal history of malignant neoplasm of breast
CPT/HCPCS: 71260; 74177; 78306; 96374; A9503

== ENCOUNTER → 2017-08-28 | Outpatient (CLI) | payer OTHER ==
[2017-08-28] MEDS: IOHEXOL 240 MG/ML 50ML VIAL. PO (08:45)
[2017-08-28] MEDS: IOHEXOL 300 MG/ML 100ML VIAL. IV (08:45)
== END | disposition home or self-care (01) ==
LOC: NM 11:09
DX: C50.111 Malignant neoplasm of central portion of right female breast (principal); C79.51 Secondary malignant neoplasm of bone; I10 Essential (primary) hypertension; E11.9 Type 2 diabetes mellitus without complications; E78.5 Hyperlipidemia, unspecified; E78.00 Pure hypercholesterolemia, unspecified; Z87.891 Personal history of nicotine dependence; Z17.0 Estrogen receptor positive status [ER+]; Z79.01 Long term (current) use of anticoagulants
CPT/HCPCS: 71260; 74177; 78306; 96374; A9503; Q9966; Q9967

== ENCOUNTER 2017-09-28 18:24 | Emergency (ER) | payer OTHER ==
[~2017-09-28] VITALS: Ht 157.5 cm; Wt 93.4 kg
[~2017-09-28 18:24] MED LIST changes: +AMLO10TA2 PO; +ASPI-630 PO; -HEPARIN PF 500 UNIT/5 ML DISP.SYRIN. IV; +HYDR-2758 PO; +HYDR-971 PO; -IOHEXOL 240 MG/ML 50ML VIAL. PO; -IOHEXOL 300 MG/ML 100ML VIAL. IV; +LETR2.5T18 PO; +LISI1TAB5 PO; +LORA10TA3 PO; +LOVA20TA2 PO; +PALB125C PO; +RANI150T2 PO
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
[2017-09-28] MEDS ORDERED: IV NORMAL SALINE 1000ML BAG 1,000 ML IV ONE (18:45)
[2017-09-28] MEDS ORDERED: ONDANSETRON PF 4 MG/2 ML VIAL. IV ONE (18:45)
[2017-09-28] MEDS ORDERED: fentaNYL PF VIAL 100 MCG/2 ML VIAL IV ONE ×2 (18:45→20:00)
[2017-09-28] MEDS ORDERED: silver sulfADIAZINE 1% CREAM 25GM TUBE. TP ONE (18:45)
[2017-09-28] MEDS ORDERED: OXYC-323 PO (20:18)
[2017-09-28] MEDS ORDERED: ONDA4TAB7 PO (20:18)
[2017-09-28] MEDS ORDERED: SILV20CR14 TP (20:18)
[2017-09-28 20:30] VITALS: BP 131/65
== END 2017-09-28 20:45 | disposition home or self-care (01) ==
LOC: ER 18:24
DX: T21.21XA Burn of second degree of chest wall, initial encounter (principal); T21.22XA Burn of second degree of abdominal wall, initial encounter; X12.XXXA Contact with other hot fluids, initial encounter; Y93.89 Activity, other specified; Y99.8 Other external cause status; Y92.89 Other specified places as the place of occurrence of the external cause
CPT/HCPCS: 16020; 96374; 96375; 96376; 99284; J2405; J3010; J7030

== ENCOUNTER 2017-09-30 14:21 | Emergency (ER) | payer OTHER ==
[~2017-09-30] VITALS: Ht 157.5 cm; Wt 93.4 kg
[~2017-09-30 14:21] MED LIST changes: +ONDA4TAB7 PO; +OXYC-323 PO; +SILV20CR14 TP
[2017-09-30 14:57] VITALS: BP 174/72
[2017-09-30] MEDS ORDERED: SILV20CR14 TP (15:33)
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
== END 2017-09-30 15:52 | disposition home or self-care (01) ==
LOC: ER 14:21
DX: T21.21XD Burn of second degree of chest wall, subsequent encounter (principal); T21.22XD Burn of second degree of abdominal wall, subsequent encounter; I10 Essential (primary) hypertension; E78.00 Pure hypercholesterolemia, unspecified; X08.8XXD Exposure to other specified smoke, fire and flames, subsequent encounter
CPT/HCPCS: 99283

== ENCOUNTER → 2017-10-23 | Outpatient (CLI) | payer OTHER ==
[2017-09-30 14:57] VITALS: BP 174/72
[~2017-10-23] MED LIST changes: -AMLO10TA2 PO; +AMLO10TA6 PO
== END | disposition home or self-care (01) ==
LOC: PMGWOUND 08:50
PROVIDERS: ATTEND Emergency Medicine Undersea and Hyperbaric Medicine
DX: T21.31XA Burn of third degree of chest wall, initial encounter (principal); T31.10 Burns involving 10-19% of body surface with 0% to 9% third degree burns; S21.032A Puncture wound without foreign body of left breast, initial encounter; S21.031A Puncture wound without foreign body of right breast, initial encounter; I10 Essential (primary) hypertension; K21.9 Gastro-esophageal reflux disease without esophagitis; E78.5 Hyperlipidemia, unspecified; E78.00 Pure hypercholesterolemia, unspecified; I25.10 Atherosclerotic heart disease of native coronary artery without angina pectoris; E66.01 Morbid (severe) obesity due to excess calories; Z68.36 Body mass index [BMI] 36.0-36.9, adult; Z87.891 Personal history of nicotine dependence; Z85.3 Personal history of malignant neoplasm of breast; X19.XXXA Contact with other heat and hot substances, initial encounter; Y93.89 Activity, other specified; Y92.89 Other specified places as the place of occurrence of the external cause; Y99.8 Other external cause status
CPT/HCPCS: 97597

== ENCOUNTER → 2017-10-30 | Outpatient (CLI) | payer OTHER ==
[2017-09-30 14:57] VITALS: BP 174/72
== END | disposition home or self-care (01) ==
LOC: PMGWOUND 08:32
PROVIDERS: ATTEND Emergency Medicine Undersea and Hyperbaric Medicine
DX: T81.31XD Disruption of external operation (surgical) wound, not elsewhere classified, subsequent encounter (principal); T31.10 Burns involving 10-19% of body surface with 0% to 9% third degree burns; I10 Essential (primary) hypertension; E78.5 Hyperlipidemia, unspecified; E78.00 Pure hypercholesterolemia, unspecified; K21.9 Gastro-esophageal reflux disease without esophagitis; I25.10 Atherosclerotic heart disease of native coronary artery without angina pectoris; E66.01 Morbid (severe) obesity due to excess calories; Z68.36 Body mass index [BMI] 36.0-36.9, adult; Z87.891 Personal history of nicotine dependence; Z85.3 Personal history of malignant neoplasm of breast; X19.XXXD Contact with other heat and hot substances, subsequent encounter
CPT/HCPCS: 99214; G0463

== ENCOUNTER → 2017-11-06 | Outpatient (CLI) | payer OTHER | END | disposition home or self-care (01) | LOC: PMGWOUND 08:33 | PROVIDERS: ATTEND Emergency Medicine Undersea and Hyperbaric Medicine | DX: T21.31XD Burn of third degree of chest wall, subsequent encounter (principal); T31.10 Burns involving 10-19% of body surface with 0% to 9% third degree burns; I10 Essential (primary) hypertension; E78.5 Hyperlipidemia, unspecified; E78.00 Pure hypercholesterolemia, unspecified; I25.10 Atherosclerotic heart disease of native coronary artery without angina pectoris; K21.9 Gastro-esophageal reflux disease without esophagitis; E66.01 Morbid (severe) obesity due to excess calories; Z68.36 Body mass index [BMI] 36.0-36.9, adult; Z87.891 Personal history of nicotine dependence; Z85.3 Personal history of malignant neoplasm of breast; X08.8XXD Exposure to other specified smoke, fire and flames, subsequent encounter | CPT/HCPCS: 99214; G0463 ==

== ENCOUNTER → 2017-11-13 | Outpatient (CLI) | payer OTHER | END | disposition home or self-care (01) | LOC: PMGWOUND 08:36 | PROVIDERS: ATTEND Emergency Medicine Undersea and Hyperbaric Medicine | DX: T21.31XD Burn of third degree of chest wall, subsequent encounter (principal); T31.10 Burns involving 10-19% of body surface with 0% to 9% third degree burns; E11.9 Type 2 diabetes mellitus without complications; I10 Essential (primary) hypertension; E78.5 Hyperlipidemia, unspecified; E78.00 Pure hypercholesterolemia, unspecified; I25.10 Atherosclerotic heart disease of native coronary artery without angina pectoris; K21.9 Gastro-esophageal reflux disease without esophagitis; E66.01 Morbid (severe) obesity due to excess calories; Z68.36 Body mass index [BMI] 36.0-36.9, adult; Z87.891 Personal history of nicotine dependence; Z85.3 Personal history of malignant neoplasm of breast; X08.8XXD Exposure to other specified smoke, fire and flames, subsequent encounter | CPT/HCPCS: 99213 ==

== ENCOUNTER → 2017-11-19 | Outpatient (CLI) | payer OTHER | END | disposition home or self-care (01) | LOC: PMGWOUND 08:33 | PROVIDERS: ATTEND Emergency Medicine Undersea and Hyperbaric Medicine | DX: T21.31XD Burn of third degree of chest wall, subsequent encounter (principal); T31.10 Burns involving 10-19% of body surface with 0% to 9% third degree burns; E11.9 Type 2 diabetes mellitus without complications; I10 Essential (primary) hypertension; E78.00 Pure hypercholesterolemia, unspecified; E78.5 Hyperlipidemia, unspecified; K21.9 Gastro-esophageal reflux disease without esophagitis; I25.10 Atherosclerotic heart disease of native coronary artery without angina pectoris; E66.01 Morbid (severe) obesity due to excess calories; Z68.36 Body mass index [BMI] 36.0-36.9, adult; Z87.891 Personal history of nicotine dependence; Z85.3 Personal history of malignant neoplasm of breast; X08.8XXD Exposure to other specified smoke, fire and flames, subsequent encounter | CPT/HCPCS: 99213 ==

== ENCOUNTER → 2017-11-26 | Outpatient (CLI) | payer OTHER | END | disposition home or self-care (01) | LOC: PMGWOUND 09:01 | PROVIDERS: ATTEND Preventive Medicine Undersea and Hyperbaric Medicine | DX: T21.31XD Burn of third degree of chest wall, subsequent encounter (principal); T31.10 Burns involving 10-19% of body surface with 0% to 9% third degree burns; E11.9 Type 2 diabetes mellitus without complications; I10 Essential (primary) hypertension; E78.5 Hyperlipidemia, unspecified; E78.00 Pure hypercholesterolemia, unspecified; I25.10 Atherosclerotic heart disease of native coronary artery without angina pectoris; K21.9 Gastro-esophageal reflux disease without esophagitis; E66.01 Morbid (severe) obesity due to excess calories; Z68.36 Body mass index [BMI] 36.0-36.9, adult; Z87.891 Personal history of nicotine dependence; Z85.3 Personal history of malignant neoplasm of breast; X08.8XXD Exposure to other specified smoke, fire and flames, subsequent encounter | CPT/HCPCS: 99213 ==

== ENCOUNTER → 2017-12-04 | Outpatient (CLI) | payer OTHER | END | disposition home or self-care (01) | LOC: PMGWOUND 08:28 | PROVIDERS: ATTEND Emergency Medicine Undersea and Hyperbaric Medicine | DX: T21.31XD Burn of third degree of chest wall, subsequent encounter (principal); T31.10 Burns involving 10-19% of body surface with 0% to 9% third degree burns; E11.9 Type 2 diabetes mellitus without complications; I10 Essential (primary) hypertension; E78.00 Pure hypercholesterolemia, unspecified; E78.5 Hyperlipidemia, unspecified; K21.9 Gastro-esophageal reflux disease without esophagitis; I25.10 Atherosclerotic heart disease of native coronary artery without angina pectoris; E66.01 Morbid (severe) obesity due to excess calories; Z68.36 Body mass index [BMI] 36.0-36.9, adult; Z87.891 Personal history of nicotine dependence; Z85.3 Personal history of malignant neoplasm of breast; X08.8XXD Exposure to other specified smoke, fire and flames, subsequent encounter | CPT/HCPCS: 99213 ==

== ENCOUNTER → 2017-12-04 | Outpatient (CLI) | payer OTHER ==
[2017-12-04] MEDS: IOHEXOL 300 MG/ML 100ML VIAL. IV ONE (09:15)
[2017-12-04] MEDS: IOHEXOL 240 MG/ML 50ML VIAL. PO ONE (09:15)
[2017-12-04] MEDS: HEPARIN PF 500 UNIT/5 ML DISP.SYRIN. IV ONE (10:30)
--- NOTE | 2017-12-04 14:28 | RAD ---
CT CHEST ABD PELVIS W/CONTRAST Indication: Breast cancer Technique: Postcontrast CT imaging was performed of the chest, abdomen, pelvis, multiplanar reconstruction images submitted. Oral contrast was also given. One or more of the following individualized dose reduction techniques were utilized for this examination: 1. Automated exposure control 2. Adjustment of the mA and/or kV according to patient size 3. Use of iterative reconstruction technique. Contrast: 75 cc Omnipaque 300 Comparison: August 28, 2017 and May 28, 2017 CHEST: Findings: There is increased infiltrate more medially of the right lower lobe extending to pleural surface. The there is mild linear likely fibrotic change left lower lobe as seen previously. There is no pleural or pericardial effusion or pneumothorax. Thoracic aortic caliber is within normal limits. No new significantly enlarged nodes are identified of the chest. There again has been right mastectomy. Some soft tissue density more laterally extending near the right axillary region is stable in appearance such as seen on axial images 24-35, focus on axial images 28 measuring about 3.9 cm transverse by 2.3 cm AP. There is again T8 compression deformity with associated sclerosis, other heterogeneity of the bones and areas of mixed sclerosis overall similar by CT. There is also degenerative disc disease greatest at mid to inferior thoracic levels. There is left internal jugular port catheter. There is coronary calcification and stent. IMPRESSION: 1. There is increased nonspecific infiltrate more medially of the right lower lobe abutting the pleural surface, otherwise no new discrete pulmonary nodularity or lymphadenopathy. There is stable soft tissue density extending to the right axillary region, previous right mastectomy. There is again evidence of osseous metastatic disease, similar degree of compression deformity of T8. Abdomen pelvis: FINDINGS: There is no new focal lesion identified of the liver. No new abnormality is identified of the pancreas, spleen, gallbladder. There is no adrenal nodularity. Both kidneys enhance, no hydronephrosis. There is atherosclerotic calcification of the abdominal aorta extending to the iliac arteries, degree of, likely [id number] stenosis of the left iliac artery. Bowel is not dilated. There is retained stool greater of the ascending and transverse colon. Small bowel is not significantly dilated. There is multilevel lumbar facet hypertrophic change. There is again large superior L1 Schmorl's node. There is again evidence of osseous metastatic disease, not convincingly changed. There are again calcifications of the uterus probably due to calcified leiomyomas. There is mild distention of urinary bladder. There is moderate to severe spinal stenosis L4-5 IMPRESSION: 1. There is no new evidence of metastatic disease to the abdomen or pelvis. There is again evidence of osseous metastatic disease. Electronically signed by: Dequan Covington MD (12/04/2017 2:25 PM) [id number]
== END | disposition home or self-care (01) ==
LOC: CT 09:05
PROVIDERS: ATTEND Internal Medicine Hematology & Oncology
DX: C79.51 Secondary malignant neoplasm of bone (principal); M48.061 Spinal stenosis, lumbar region without neurogenic claudication; I70.0 Atherosclerosis of aorta; M43.8X4 Other specified deforming dorsopathies, thoracic region; Z85.3 Personal history of malignant neoplasm of breast; Z90.11 Acquired absence of right breast and nipple
CPT/HCPCS: 71260; 74177; Q9966; Q9967

== ENCOUNTER → 2018-01-28 | Outpatient (CLI) | payer OTHER ==
[~2018-01-28] MED LIST changes: -HYDR-2758 PO; +HYDR-2761 PO; +HYDR-3164 PO; -HYDR-971 PO; -OXYC-323 PO; +OXYC1TAB15 PO
--- NOTE | 2018-01-28 09:05 | RAD ---
DATE: January 28, 2018 EXAM: DIGITAL DIAGNOSTIC LT HISTORY: History of right breast cancer treated with right mastectomy. COMPARISON: October 22, 2016 This study was interpreted with the benefit of Computerized Aided Detection (CAD). FINDINGS: Breast Density: HETERO The breast parenchyma is heterogenously dense, which could reduce sensitivity of mammography. Breast parenchyma level C.. Again seen is a nodule within the upper-outer quadrant of the left breast which may represent an intramammary lymph node. This is stable. Scattered calcifications of the left breast are stable. No new finding is evident. IMPRESSION: Stable mammogram on the left side. No mammographic indicators for malignancy on the left side. BI-RADS CATEGORY: 2 BENIGN FINDING RECOMMENDED FOLLOW-UP: 12M 12 MONTH FOLLOW-UP PQRS compliance statement: Patient information was entered into a reminder system with a target due date January 29, 2019 for the next mammogram. Mammography is a sensitive method for finding small breast cancers, but it does not detect them all and is not a substitute for careful clinical examination. A negative mammogram does not negate a clinically suspicious finding and should not result in delay in biopsying a clinically suspicious abnormality. "Our facility is accredited by the [employer] Mammography Program." The patient's breast density may affect the ability of mammography to detect breast cancer. There are 4 categories of breast density, A, B, C and D. Breast density A means that most of the breast tissue is replaced with adipose tissue and therefore is not dense. Breast density B means that the breast tissue is mildly dense and scattered. Breast density C means that the breast tissue is heterogeneously dense. Breast density D means that the breast tissue is very dense. Breast densities especially C and D may decrease the sensitivity of mammography to detect breast cancer. Therefore, the patient may benefit from 3-D breast mammography (3D breast tomography) as a part of their screening mammogram. Insurance may or may not pay for this additional imaging. The patient's breast density based on today's mammogram is category C.
== END | disposition home or self-care (01) ==
LOC: MAMMO 08:01
PROVIDERS: ATTEND Family Medicine
DX: Z08 Encounter for follow-up examination after completed treatment for malignant neoplasm (principal); Z85.3 Personal history of malignant neoplasm of breast
CPT/HCPCS: 77065

== ENCOUNTER → 2018-03-17 | Outpatient (CLI) | payer MEDICAID, OTHER ==
[~2018-03-17] MED LIST changes: -AMLO10TA6 PO; +AMLO10TA8 PO; +CONTRAST GIVEN. MC PRN; +FEMARA2.5 MG PO; +HEPARIN PF 500 UNIT/5 ML DISP.SYRIN. IV ONE; +IOHEXOL 240 MG/ML 50ML VIAL. PO ONE; +IOHEXOL 300 MG/ML 100ML VIAL. IV ONE; -LETR2.5T18 PO
--- NOTE | 2018-03-17 14:52 | RAD ---
CT chest, abdomen and pelvis with contrast 03/17/2018 CLINICAL INDICATION: Malignant neoplasm of the right breast, follow-up. COMPARISON: CT chest, abdomen and pelvis 12/04/2017, 08/28/2017, 05/28/2017. TECHNIQUE: Multiple CT images of the chest, abdomen and pelvis were obtained following the intravenous administration of 75 mL Omnipaque 300. Oral contrast was administered. *One or more of the following individualized dose reduction techniques were utilized for this examination: 1. Automated exposure control. 2. Adjustment of the mA and/or kV according to patient size. 3. Use of iterative reconstruction technique. FINDINGS: CHEST: Heart size is normal without significant pericardial effusion. Coronary artery calcifications are noted. The thoracic aorta is normal in caliber with mild scattered calcified plaque most prominent at the aortic arch and great vessel origins. There is a left IJ chest port terminating in the superior caval atrial junction. Right mastectomy and right axillary lymph node dissection. Slight decrease in spiculated soft tissue thickening in the right axilla measuring 3.3 cm series 2/image 23, previously 4.0 cm when measured in a similar fashion. No left axillary, mediastinal or hilar lymphadenopathy. The central airways are patent. Right infrahilar volume loss, consolidation and bronchiectasis consistent with posttherapeutic fibrosis. No suspicious noncalcified pulmonary nodule. No pleural effusion or pneumothorax. No significant change in sclerotic lesions of the lower cervical thoracic spine and throughout the bony thorax. Stable mild compression deformity at T8, likely pathologic, without significant bony retropulsion. There is a stable nondisplaced anterior left 6th rib fracture deformity with adjacent sclerosis. Abdomen and pelvis: Liver, gallbladder, spleen, adrenal glands, pancreas, adrenal glands and kidneys are unremarkable. No suspicious hepatic lesion. Abdominal aorta normal caliber with dense aortoiliac calcified plaque. Major portal veins are patent. No retroperitoneal or mesenteric lymphadenopathy. Small and large bowel loops are normal in caliber without obstruction. Appendix is normal in appearance. Oral enteric contrast reaches the cecum. No pneumoperitoneum or abdominal free fluid. Mildly distended and unopacified urinary bladder is unremarkable. There are multiple calcified uterine fibroids. No iliac or inguinal lymphadenopathy. Unchanged patchy sclerotic lesions throughout the lumbar spine and to a lesser extent in the bony pelvis. IMPRESSION: CHEST: 1. Postsurgical changes of a right mastectomy and right axillary lymph node dissection. Slight decrease in right axillary spiculated soft tissue thickening, likely post therapeutic. Attention on follow-up imaging is recommended. 2. Stable right paramediastinal post therapeutic radiation fibrosis. 3. No evidence of pulmonary or thoracic mychal metastatic disease. 4. Stable thoracic sclerotic lesions consistent with treated osseous metastatic disease. Abdomen and pelvis: 1. No evidence of hepatic or abdominopelvic mychal metastatic disease. 2. Unchanged sclerotic lesions throughout the lumbar spine and bony pelvis consistent with treated osseous metastatic disease. Electronically signed by: Evin Francis MD (03/17/2018 2:47 PM) [facility]
--- NOTE | 2018-03-17 15:28 | RAD ---
EXAM: Bone scintigraphy. 03/17/2018 HISTORY: Right breast carcinoma and mastectomy. TECHNIQUE: Following the intravenous injection of 25.0 mCi of Tc-99m labeled methylene diphosphonate (MDP), delayed images of the whole body were performed in anterior and posterior projections. COMPARISON: Same day CT chest, abdomen and pelvis, CT chest, abdomen and pelvis 12/04/2017, oh body bone scan 05/28/2017. FINDINGS: There is physiologic uptake in both kidneys with excretion into the urinary bladder. There is stable degenerative uptake in the shoulders, hips, knees and ankles. No suspicious focal radiotracer uptake. IMPRESSION: No suspicious focal radiotracer uptake to suggest osseous metastatic disease. Electronically signed by: Evin Francis MD (03/17/2018 3:23 PM) [facility]
== END | disposition home or self-care (01) ==
LOC: NM 09:14
PROVIDERS: ATTEND Internal Medicine Hematology & Oncology
DX: Z08 Encounter for follow-up examination after completed treatment for malignant neoplasm (principal); M53.86 Other specified dorsopathies, lumbar region; M53.84 Other specified dorsopathies, thoracic region; D25.9 Leiomyoma of uterus, unspecified; M95.4 Acquired deformity of chest and rib; M43.8X4 Other specified deforming dorsopathies, thoracic region; I70.0 Atherosclerosis of aorta; I25.10 Atherosclerotic heart disease of native coronary artery without angina pectoris; Z85.3 Personal history of malignant neoplasm of breast; Z98.890 Other specified postprocedural states; Z90.11 Acquired absence of right breast and nipple
CPT/HCPCS: 71260; 74177; 78306; 96374; A9503; Q9966; Q9967

== ENCOUNTER → 2018-06-10 | Outpatient (CLI) | payer OTHER ==
--- NOTE | 2018-06-10 14:14 | RAD ---
CT of the chest, abdomen, and pelvis with IV contrast compared to similar examination dated March 172018 for history of breast cancer, with metastasis. TECHNIQUE: Contiguous helical 5 mm axial images are obtained from the thoracic inlet to the pelvic floor following administration of IV contrast. Oral contrast was also measured. Findings in the chest: Port-A-Cath is present. Postsurgical changes of right mastectomy are seen. There is redemonstration of a masslike spiculated soft tissue density within the right axilla which is unchanged in size and appearance from the prior study, and is most consistent with postsurgical scarring. No suspicious axillary lymphadenopathy is seen. Heart size within normal limits. Coronary artery calcifications are seen. No suspicious mediastinal or hilar lymphadenopathy is identified. There is redemonstration of fibrosis and bronchiectasis throughout the medial aspect the right middle and lower lobes, which is well-defined and unchanged, and likely represent sequelae of radiation therapy. Patchy peripheral opacities in the left lung base are slightly more conspicuous, and may reflect atelectasis or scarring. Some degree of early fibrosis may be present as well. No suspicious lung nodules or masses. Sclerotic changes involving multiple vertebral bodies are unchanged, consistent with treated metastatic disease. Pathologic compression fracture of T8 is also unchanged and appears chronic and stable. Findings in the abdomen and pelvis: The liver, spleen, pancreas, gallbladder, bilateral adrenal glands, and bilateral kidneys are all normal. No suspicious mediastinal, retroperitoneal, or pelvic adenopathy is identified. The urinary bladder is fluid distended and grossly unremarkable. Uterus is present with coarse calcifications. No adnexal masses are seen. No free or loculated fluid collections are identified. There is inhomogeneous opacification of large and small bowel, with no areas of bowel dilatation. There is redemonstration of extensive aortoiliac atherosclerosis, with possible hemodynamic significant left common iliac artery stenosis. Once again there are stable appearing vague sclerotic lesions throughout the pelvis and lumbar spine, with no new suspicious osteolytic or osteoblastic bone lesions identified. There is a benign cystic defect at the superior endplate of L1 which is stable, and may reflect large Schmorl's node. IMPRESSION: 1. Stable postsurgical changes of a right mastectomy and lymph node dissection. Spiculated masslike soft tissue abnormality in the right axilla is unchanged in size and appearance and likely represents postoperative scar tissue. 2. Posttreatment changes of the medial right lung manifested as fibrosis or bronchiectasis. This is stable. 3. Patchy areas of airspace disease in the periphery of the left lung with some superimposed fibrosis. These findings are slightly more conspicuous and could reflect progressive atelectasis or early infiltrate. 4. Stable appearing multifocal bony metastasis, with no new suspicious bone lesions identified. 5. No new metastatic lesions in the chest, abdomen, or pelvis, and no suspicious adenopathy in any of these distributions. PQRS Compliance Statement: One or more of the following individualized dose reduction techniques were utilized for this examination: 1. Automated exposure control 2. Adjustment of the mA and/or kV according to patient size 3. Use of iterative reconstruction technique Electronically signed by: Salazar Wooten MD (06/10/2018 2:11 PM) [id number]
--- NOTE | 2018-06-11 08:16 | RAD ---
Examination: BONE SCAN WHOLE BODY History: rt breast ca. rt mastectomy 01/2017. pt states she has rt hip/some groin pain, nothing acute, just aches from time to time. Comparison/Correlation: 06/10/2018 CT chest abdomen pelvis with contrast, 12/13/2016, 08/28/2017, and 03/17/2018 oh body bone scan examinations Findings: 25 mCi technetium 99m MDP was intravenously administered for purposes of total-body bone scintigraphy. Uptake involving uptake of radiotracer involving the left sixth rib corresponding to an old fracture is noted. Mild uptake involving the left seventh rib costochondral junction noted. No suspicious uptake at this site. Subtle linear uptake involving the posterior ribs at the left mid thoracic level is noted without suspicious corresponding CT finding and without significant change compared to previous bone scintigraphy exams Mild uptake involving the spine corresponding to degenerative change noted. Uptake involving the medial compartment of the knees bilaterally is evident consistent with degenerative change. Uptake involving the midfoot region bilaterally compatible with degenerative change. Kidneys and urinary bladder are visualized. Impression: No suspicious uptake of radiotracer to suggest interval metastatic disease. No significant changes. Electronically signed by: Soy Leal MD (06/11/2018 8:13 AM) [facility]
== END | disposition home or self-care (01) ==
LOC: NM 08:38
PROVIDERS: ATTEND Internal Medicine Hematology & Oncology
DX: J84.10 Pulmonary fibrosis, unspecified (principal); I25.10 Atherosclerotic heart disease of native coronary artery without angina pectoris; M47.819 Spondylosis without myelopathy or radiculopathy, site unspecified; M84.48XD Pathological fracture, other site, subsequent encounter for fracture with routine healing; Z90.11 Acquired absence of right breast and nipple; Z85.3 Personal history of malignant neoplasm of breast
CPT/HCPCS: 71260; 74177; 78306; A9503; Q9967

== ENCOUNTER → 2018-09-02 | Outpatient (CLI) | payer OTHER ==
[~2018-09-02] MED LIST changes: -CONTRAST GIVEN. MC PRN
--- NOTE | 2018-09-02 10:44 | RAD ---
PQRS Compliance statement: One or more of the following individualized dose reduction techniques were utilized for this examination: 1. Automated exposure control. 2. Adjustment of the mA and/or kV according to patient size. 3. Use of iterative reconstruction technique. Indication:Right breast cancer with bone metastasis. Restaging scan. TECHNIQUE: CT chest, abdomen and pelviswith IV contrast with multiplanar reformats. COMPARISON: 06/10/2018. FINDINGS: Right mastectomy. Left chest wall Chemo-Port is seen with its tip in the SVC. Heart is normal in size. No pericardial or pleural effusion. Atherosclerotic plaque seen in the aortic arch. No enlarged axillary, mediastinal or hilar adenopathy. Spiculated mass in the right axilla measuring 3.3 x 1.7 cm, previously 3.5 x 1.7 cm. Mild bronchiectasis is seen in the medial aspect of the right lower lobe, stable. Mild subsegmental atelectasis along the medial segment of the right middle lobe. Otherwise, lungs are clear. Redemonstrated are multifocal areas of sclerosis in the vertebral bodies for example due T2, T8 vertebral bodies. Stable mild compression deformity of the T8 vertebral body. Liver, spleen, gallbladder, pancreas, adrenals and kidneys are within normal limits. No free pelvic fluid or ascites. No enlarged retroperitoneal or pelvic adenopathy. Moderate diffuse atherosclerotic plaque in the infrarenal aorta and bilateral iliac arteries. No bowel obstruction. Anteverted uterus with calcified fibroids. Urinary bladder is within normal limits. Stable small focus of sclerosis in the posterior aspect of the left iliac bone. Stable lucent lesion in the superior anterior aspect of the L1 vertebral body. IMPRESSION: 1. Likely posterior fusion changes in the right middle lobe and right lower lobe, stable. 2. Stable spiculated right outer chest wall mass like lesion which may represent scar tissue. Attention on follow-up. 3. Stable osseous metastasis. Electronically signed by: Segundo Adames DO (09/02/2018 10:41 AM) [facility]
--- NOTE | 2018-09-02 16:44 | RAD ---
Whole body bone scan Clinical indications: Right breast cancer. COMPARISON: June 10, 2018 bone scan. At technique: After IV infusion of 25 mCi of technetium 99m MDP, delayed anterior and posterior planar images of the body were performed. FINDINGS: Bilateral renal function is evident. Uptake is seen involving both SI joints and both hip joints and both knee joints and both feet consistent with degenerative osteoarthritis. This was seen previously. There is uptake seen involving the thoracic and lumbar spine which is unchanged. There is mild uptake seen involving the rib cage bilaterally which is unchanged and may be related to old fractures. No new osseous uptake is seen. IMPRESSION: Stable bone scan. No new osseous metastatic disease is evident. Electronically signed by: Arnold Bermudez MD (09/02/2018 4:41 PM) [id number]
== END | disposition home or self-care (01) ==
LOC: NM 15:27
PROVIDERS: ATTEND Internal Medicine Hematology & Oncology
DX: C79.51 Secondary malignant neoplasm of bone (principal); C50.111 Malignant neoplasm of central portion of right female breast; J47.9 Bronchiectasis, uncomplicated; J98.11 Atelectasis; I70.0 Atherosclerosis of aorta; D25.9 Leiomyoma of uterus, unspecified; M48.8X6 Other specified spondylopathies, lumbar region; Z90.11 Acquired absence of right breast and nipple; M43.8X4 Other specified deforming dorsopathies, thoracic region
CPT/HCPCS: 71260; 74177; 78306; A9503; Q9966; Q9967

== ENCOUNTER → 2018-12-02 | Outpatient (CLI) | payer MEDICAID, OTHER ==
[~2018-12-02] MED LIST changes: +CONTRAST GIVEN. MC PRN; -HEPARIN PF 500 UNIT/5 ML DISP.SYRIN. IV ONE; +HEPARIN PF 500 UNIT/5 ML DISP.SYRIN. IVP ONE; +LISI1TAB19 PO; -LISI1TAB5 PO
--- NOTE | 2018-12-02 16:39 | RAD ---
Examination: CT CHEST ABD PELVIS W/CONTRAST History: Breast cancer with bone metastases Comparison/Correlation: 08/29/2018 CT chest abdomen and pelvis with contrast Findings: Axial images of the chest, abdomen, and pelvis were obtained following IV and oral contrast. Sagittal and coronal reformatted images were provided. Right mastectomy is noted. Left-sided Sgkrgi-[id number] is present. Stent material involving the proximal left anterior descending coronary artery is present. Emphysematous involvement of the lung lópez is noted. Medial right basilar bronchiectasis and atelectasis is present. No pneumothorax. No pleural or pericardial effusion. No pulmonary nodule or mass. Right upper chest wall situated soft tissue density at the axillary level anteriorly is present and stable. Liver, spleen, pancreas, adrenal glands, gallbladder fossa, and kidneys are unremarkable. Appendix is normal. Moderate quantity of stool in the colon is present. Urinary bladder is unremarkable. No extraluminal gas. Calcified fibroids involve the uterus. Significant calcific involvement of the abdominal aorta and iliac arteries is noted. Extensive scattered bony sclerotic lesions are evident. This is most evident at T2 and T8 vertebral bodies. Impression: Right lower lobe medial basilar bronchiectasis and atelectasis is unchanged. No new pulmonary lesion. No new suspicious findings involving the abdomen or pelvis. Bony sclerotic metastases are stable compared to the previous exam. Right outer chest wall axillary level mass lesion is stable compatible likely representing scarring. PQRS Compliance Statement: One or more of the following individualized dose reduction techniques were utilized for this examination: 1. Automated exposure control 2. Adjustment of the mA and/or kV according to patient size 3. Use of iterative reconstruction technique Electronically signed by: Soy Leal MD (12/02/2018 4:36 PM) [facility]
--- NOTE | 2018-12-02 16:44 | RAD ---
Examination: BONE SCAN WHOLE BODY History: Breast cancer Comparison/Correlation: 12/02/2018 CT chest abdomen and pelvis with contrast, 09/02/2018 whole-body bone scan, 03/17/2018 whole-body bone scintigraphy Findings: 25.5 mCi technetium 99m MDP was intravenously administered for purposes of total body bone scintigraphy. Uptake of radiotracer at the lower thoracic spine is again seen. Linear foci of uptake involving the ribs bilaterally at the midthoracic level are unchanged. Uptake of radiotracer involving the medial compartments of knees likely representing degenerative change noted. Uptake of radiotracer involving the feet noted and likely represent degenerative change. There is a small region of uptake involving the left breast soft tissue similar to the prior exams and of indeterminate. Uptake or radiotracer within the kidneys and urinary bladder is noted. Impression: Uptake of radiotracer involving bony structures compatible with known metastases. No significant change. Electronically signed by: Soy Lael MD (12/02/2018 4:42 PM) [facility]
== END | disposition home or self-care (01) ==
LOC: NM 08:00
PROVIDERS: ATTEND Internal Medicine Hematology & Oncology
DX: C79.51 Secondary malignant neoplasm of bone (principal); C50.111 Malignant neoplasm of central portion of right female breast; J43.9 Emphysema, unspecified; J98.11 Atelectasis; J47.9 Bronchiectasis, uncomplicated; Z17.0 Estrogen receptor positive status [ER+]; Z90.11 Acquired absence of right breast and nipple
CPT/HCPCS: 71260; 74177; 78306; A9503; Q9966; Q9967

== ENCOUNTER → 2019-03-18 | Outpatient (CLI) | payer MEDICAID ==
[~2019-03-18] MED LIST changes: -CONTRAST GIVEN. MC PRN
--- NOTE | 2019-03-18 12:49 | RAD ---
EXAM: CT OF THE CHEST, ABDOMEN AND PELVIS WITH CONTRAST. HISTORY: Breast cancer. TECHNIQUE: Computed tomography of the chest, abdomen and pelvis was performed after the intravenous administration of iodinated contrast. One or more of the following individualized dose reduction techniques were utilized for this examination: 1. Automated exposure control. 2. Adjustment of the mA and/or kV according to patient size. 3. Use of iterative reconstruction technique. COMPARISON: 12/02/2018. FINDINGS: Bone windows reveal multiple sclerotic lesions throughout the thoracic greater than lumbar spine. Small lesions are noted within the pelvis. No clearly new lesions are seen. There is slight grade 1 anterolisthesis at L4-5. Central canal stenosis is moderate to severe at this level. A left-sided port catheter has its tip in the superior cavoatrial junction. There are changes of right mastectomy and right axillary lymph node dissection. There are no pathologically enlarged mediastinal or axillary lymph nodes. There is no pleural or pericardial effusion. The heart is not enlarged. There are atherosclerotic calcifications of the coronary arteries. Postradiation changes are noted in the right paramediastinal territory. Mild subpleural interstitial line thickening seen on the right greater than left. There are no clearly suspicious nodules. Stool throughout the colon is consistent with constipation. The appendix is not inflamed. Calcified small uterine fibroids are noted. There is no small bowel obstruction. The liver, gallbladder, pancreas, adrenal glands, spleen and kidneys are unremarkable. There are dense atherosclerotic calcifications. There are no pathologically enlarged lymph nodes. IMPRESSION: 1. Osseous metastatic disease is not clearly changed by CT. No new lesions are identified. 2. Correlate for constipation. Electronically signed by: Yulissa Avelar MD (03/18/2019 12:46 PM) [facility]
--- NOTE | 2019-03-18 15:20 | RAD ---
Whole-body bone scan. 03/18/2019 History: History of metastatic breast cancer. Comparison/Correlation: Bone scan December 02, 2018. 12/02/2018 CT chest abdomen and pelvis with contrast, 09/02/2018 whole-body bone scan, 03/17/2018 whole-body bone scintigraphy Findings: 25.5 mCi technetium 99m MDP was intravenously administered for purposes of total body bone scintigraphy. Uptake secondary to degenerative disease is seen in the medial compartment bilateral knees, and SI joints bilaterally, unchanged from prior exam. Abnormal radiotracer uptake in the bilateral ribs, possibly the inferior most scapula bilaterally,, and thoracic spine is similar. No new foci of radiotracer uptake or is identified. Small area of uptake involving the left breast is again noted, grossly unchanged. Impression : Grossly unchanged pattern of radiotracer uptake with respect to comparison study. Electronically signed by: Gerard Villafuerte MD (03/18/2019 3:17 PM) [id number]
== END | disposition home or self-care (01) ==
LOC: CT 09:03
PROVIDERS: ATTEND Internal Medicine Hematology & Oncology
DX: C50.111 Malignant neoplasm of central portion of right female breast (principal); I25.10 Atherosclerotic heart disease of native coronary artery without angina pectoris; K59.00 Constipation, unspecified; D25.9 Leiomyoma of uterus, unspecified; Z17.0 Estrogen receptor positive status [ER+]; Z90.11 Acquired absence of right breast and nipple
CPT/HCPCS: 71260; 74177; 78306; A9537; Q9966; Q9967

== ENCOUNTER → 2019-07-29 | Outpatient (CLI) | payer MEDICAID ==
[~2019-07-29] MED LIST changes: +CONTRAST GIVEN. MC PRN
--- NOTE | 2019-07-29 10:54 | RAD ---
CT chest abdomen pelvis with contrast Indication: Breast cancer Technique: Postcontrast CT imaging was performed of the chest, abdomen, pelvis, multiplanar reconstruction images submitted. Oral contrast was also given. One or more of the following individualized dose reduction techniques were utilized for this examination: 1. Automated exposure control 2. Adjustment of the mA and/or kV according to patient size 3. Use of iterative reconstruction technique. Comparison: March 18, 2019. CHEST: Findings: There is again evidence of multifocal osseous metastatic disease with scattered sclerotic foci fairly similar. There is again pathologic compression deformity of T8. Facet degenerative change contributes to severe narrowing of the left T7-8 neural foramen. There is similar degree of bronchiectasis with adjacent irregular density along the medial aspect of the right lower lobe extending to the hilar region, also similar findings of the right middle lobe more medially. There is again some septal thickening bilaterally such as of the upper lobes right greater the left overall similar. No new suspicious pulmonary nodularity is identified. There is no new pleural or pericardial fluid, infiltrate, or pneumothorax. There is coronary calcification. There again has been right mastectomy. There is some persistent right axillary density best seen image 20 series 2 fairly similar. There is again left internal jugular port catheter with the tip in the superior vena cava. IMPRESSION: 1. There is again evidence of multifocal osseous metastatic disease. No new abnormality is identified by CT, similar bronchiectasis with adjacent parenchymal density of the right lower and right middle lobes medially. Right axillary density is also stable. Abdomen pelvis FINDINGS: No new abnormality is identified of the liver, spleen, pancreas, or adrenal glands. Both kidneys enhance, no hydronephrosis. Gallbladder is present without obvious abnormality by CT. There is diffuse plaque of the abdominal aorta and branches, again likely moderate stenosis of the left common iliac artery. Bowel is not dilated. There is no free fluid or free air. There is no significant inflammatory type change about the bowel. No new significant lymphadenopathy is identified. There are again some calcified foci of the uterus more likely due to fibroids. There is again sclerotic lesion of the posterior right L4 vertebral body extending to the pedicle and also some foci of the bilateral iliac bones. There is again superior Schmorl's node/lytic focus of L1 vertebral body. There is advanced L5-S1 degenerative disc disease. There is multilevel facet degenerative change, again grade 1 anterior spondylolisthesis L4-5. There is least moderate spinal stenosis L4-5. There is variable lumbar neural foramina compromise greatest on the right at L4-5 and L1-2 and bilaterally at L5-S1. IMPRESSION: 1.There is again evidence of osseous metastatic disease, no evidence of new metastatic disease to the abdomen or pelvis. Electronically signed by: Dequan Covington MD (07/29/2019 10:52 AM) [id number]
--- NOTE | 2019-07-29 14:07 | RAD ---
Nuclear medicine whole body bone scan History: Right breast cancer. Comparison: CT chest abdomen and pelvis with contrast, same day. Over the bone scan, March 18, 2019 and December 02, 2018. Technique: Examination performed after intravenous administration of 25.4 mCi Technetium 99m MDP. Images of the whole body were obtained in the anterior and posterior projections. Findings: Heterogeneous increased tracer uptake in the thoracolumbar spine is unchanged. Heterogeneous increased tracer uptake in the region of the sacroiliac joints is unchanged. Increased tracer uptake of the left maxilla is unchanged. Tracer uptake in ribs is relatively symmetric. Periarticular tracer uptake of the knees is likely degenerative and is unchanged. There is right mastectomy. Tracer distribution in the soft tissues appears physiologic. IMPRESSION: No new sites of bone metastasis are identified scintigraphically. The existing sites demonstrate unchanged uptake. Electronically signed by: Devang Haji MD (07/29/2019 2:04 PM) [facility]
== END ==
LOC: NM 08:55
PROVIDERS: ATTEND Internal Medicine Hematology & Oncology
DX: C50.111 Malignant neoplasm of central portion of right female breast (principal); M43.16 Spondylolisthesis, lumbar region; M51.37 Other intervertebral disc degeneration, lumbosacral region; M48.061 Spinal stenosis, lumbar region without neurogenic claudication; Z90.11 Acquired absence of right breast and nipple; Z17.0 Estrogen receptor positive status [ER+]
CPT/HCPCS: 71260; 74177; 78306; A9503; J1642; Q9966; Q9967

== ENCOUNTER → 2020-05-01 | Outpatient (CLI) | payer OTHER, MEDICAID ==
[~2020-05-01] MED LIST changes: +AMLO-187 PO; -AMLO10TA8 PO; -CONTRAST GIVEN. MC PRN; -HEPARIN PF 500 UNIT/5 ML DISP.SYRIN. IVP ONE; -IOHEXOL 240 MG/ML 50ML VIAL. PO ONE; -IOHEXOL 300 MG/ML 100ML VIAL. IV ONE; -LISI1TAB19 PO; +LISI1TAB37 PO
--- NOTE | 2020-05-02 16:25 | RAD ---
Examination: Left digital diagnostic mammogram. INDICATION: 64-year-old woman due for mammographic screening is status post right mastectomy for adrian st cancer in January 2017 also presents for surveillance left diagnostic breast imaging. COMPARISON: 01/28/2018 left mammogram and bilateral diagnostic mammogram of 10/22/2016 TECHNIQUE: CC, MLO and ML views of the left breast were obtained with full field 3-D mammography. Mag nification views of the left breast in the CC and MLO projections were also obtained. FINDINGS: Heterogeneously dense breast parenchyma. Clustered microcalcifications in the posterior slightly medial left breast may be associated with a s eryn view asymmetry in the CC projection. These calcifications cannot be confirmed stable and need a dditional evaluation with tissue sampling. IMPRESSION: Suspicious cluster of calcifications in the posterior central left breast. Stereotactic left breast biopsy recommended. BI-RADS Category 4 Findings suspicious for malignancy. Discussed with patient. Findings and recommendations telephoned to patient's referring physician Dr. Pavel Null's office where Sharona took the report on his behalf at 3:55 PM on 05/02/2020. Electronically signed by: Angela Munoz MD (05/02/2020 4:22 PM) [id number]
== END ==
LOC: MAMMO 10:59
PROVIDERS: ATTEND Family Medicine
DX: R92.8 Other abnormal and inconclusive findings on diagnostic imaging of breast (principal)
CPT/HCPCS: 77065

== ENCOUNTER 2020-09-06 13:02 | Observation (INO) | payer OTHER, MEDICAID ==
[~2020-09-06] VITALS: Ht 157.5 cm; Wt 92.7 kg
--- NOTE | 2020-09-06 16:09 | PHYS DOC ---
Past Medical History Past Medical History: High Cholesterol, Hypertension, Other Additional Past Medical Histor: BREAST Ca WITH METS Past Surgical History: Tubal ligation, Other Additional Past Surgical Histo: RIGHT MASTECTOMY Smoking Status: Never Smoker Alcohol Use: None Drug Use: None General Adult EDM: Chief Complaint: ABNORMAL LABS HPI: HPI: Patient is a 64 year old female with history of metastatic breast cancer to bone on Ibrance and hormonal agent who follows with Dr. Lemus who presents with anemia found on outpatient labs. Patient states that for 2 or 3 weeks she has had increasing shortness of breath with activity. Has had some mild lower extremity edema. No cough, fever, chills, chest pain. She has had no melena, hematochezia. No vomiting. No blood loss apparent. No blood thinners. Review of Systems: Review of Systems: Constitutional: Denies fever or chills. [] Eyes: Denies change in visual acuity. [] HENT: Denies nasal congestion or sore throat. [] Respiratory: Exertional shortness of breath. [] Cardiovascular: Denies chest pain. + Mild lower extremity edema [] GI: Denies abdominal pain, nausea, vomiting, bloody stools or diarrhea. [] : Denies dysuria. [] Musculoskeletal: Denies back pain or joint pain. [] Integument: Denies rash. [] Neurologic: Denies headache, focal weakness or sensory changes. [] Endocrine: Denies polyuria or polydipsia. [] Lymphatic: Denies swollen glands. [] Psychiatric: Denies depression or anxiety. [] Heart Score: C/O Chest Pain: No Risk Factors: Risk Factors: DM, Current or recent (<one month) smoker, HTN, HLP, family history of CAD, obesity. Risk Scores: Score 0 - 3: 2.5% MACE over next 6 weeks - Discharge Home Score 4 - 6: 20.3% MACE over next 6 weeks - Admit for Clinical Observation Score 7 - 10: 72.7% MACE over next 6 weeks - Early Invasive Strategies Family History: Family History: No pertinent past medical history Allergies: Allergies: Allergies Coded Allergies Type Severity Reaction Last Updated Verified No Known Drug Allergies 01/22/17 No Physical Exam: PE: Constitutional: Well developed, well nourished, no acute distress, non-toxic appearance. [] HENT: Normocephalic, atraumatic, bilateral external ears normal, oropharynx moist, no oral exudates, nose normal. [] Eyes: PERRLA, EOMI, conjunctiva normal, no discharge. [] Neck: Normal range of motion, no tenderness, supple, no stridor. [] Cardiovascular:Heart rate regular rhythm, no murmur [] Lungs & Thorax: Bilateral breath sounds clear to auscultation [] Abdomen: Bowel sounds normal, soft, no tenderness, no masses, no pulsatile masses. [] Skin: Warm, dry, no erythema, no rash. [] Back: No tenderness, no CVA tenderness. [] Extremities: No tenderness, no cyanosis, no clubbing, ROM intact, no edema. [] Neurologic: Alert and oriented X 3, normal motor function, normal sensory function, no focal deficits noted. [] Psychologic: Affect normal, judgement normal, mood normal. [] Current Patient Data: Vital Signs: Vital Signs Date Time Temp Pulse Resp B/P (MAP) Pulse Ox O2 Delivery O2 Flow Rate FiO2 09/06/20 14:05 98.3 102 22 163/57 (106) 100 Nasal Cannula 98.3 EKG: EKG: [] Radiology/Procedures: Radiology/Procedures: [] Course & Med Decision Making: Course & Med Decision Making Pertinent Labs and Imaging studies reviewed. (See chart for details) Patient is a 64-year-old female with history of metastatic breast cancer treated with Ibrance and hormonal therapy by a Dr. Lemus of oncology who presents with reported anemia less than 7 on outpatient labs. On arrival is afebrile. Slightly tachycardic to low 100s. Hemodynamically stable. She has never required transfusions in the past. Hemoglobin is 6.9 here. Blood transfusion of 1 unit ordered. Patient was consented verbally with risks of hepatitis, HIV, bacterial infection, allergic reaction, TRALI, TACO, and Transfusion reaction outlined. I attempted to call her outpatient providers to see if we could arrange is safe outpatient plan with close follow-up, but was unable to contact anyone. For this reason I feel that she should be watched overnight for observation to ensure that she tolerates her blood transfusions and that her labs have stabilized. 18:48 Osbaldo Disclaimer: Osbaldo Disclaimer: This electronic medical record was generated, in whole or in part, using a voice recognition dictation system. Departure Departure Impression: Primary Impression: Anemia Disposition: ADMITTED INPATIENT Admitting Physician: AMEE Culp) Condition: STABLE Referrals: MADELEINE MUHAMMAD MD (PCP) CONSUELO CHEN MD Sep 06, 2020 16:09
[2020-09-06 16:54] LABS: BASO % 1 % (0-3); EOS % 1 % (0-3); LYMPH # 0.2 x10^3/uL (1.0-4.8); LYMPH % 16 % (24-48); MEAN CORPUSCULAR HEMOGLOBIN 38 pg (25-35); MEAN CORPUSCULAR HGB CONC 35 g/dL (31-37); MEAN CORPUSCULAR VOLUME 111 fL (79-100); MONO # 0.2 x10^3/uL (0.0-1.1); MONO % 16 % (0-9); NEUT % 67 % (31-73); PLATELET COUNT 194 x10^3/uL (140-400); RED BLOOD COUNT 1.81 x10^6/uL (3.50-5.40); RED CELL DISTRIBUTION WIDTH 22.8 % (11.5-14.5)
[2020-09-06 16:57] LABS: HEMOGLOBIN 6.9 g/dL (12.0-15.5); WHITE BLOOD COUNT 1.5 x10^3/uL (4.0-11.0)
[2020-09-06 17:01] LABS: CALCIUM 8.9 mg/dL (8.5-10.1); CREATININE 1.3 mg/dL (0.6-1.0); GFR 41.1; POTASSIUM 3.9 mmol/L (3.5-5.1)
[2020-09-06 17:07] LABS: ALBUMIN 3.6 g/dL (3.4-5.0); TOTAL BILIRUBIN 0.6 mg/dL (0.2-1.0); TOTAL PROTEIN 7.2 g/dL (6.4-8.2)
[2020-09-06 17:23] LABS: % BANDS 12 % (0-9); % LYMPHS 16 % (24-48); % MONOS 12 % (0-10); % SEGS 60 % (35-66); ANISOCYTOSIS MOD; NUCLEATED RBC 2; PLT ESTIMATE ADEQUATE (ADEQUATE); POIKILOCYTOSIS SLIGHT
[2020-09-06 17:24] LABS: POLYCHROMASIA SLIGHT
[2020-09-06] MEDS ORDERED: ONDANSETRON PF 4 MG/2 ML VIAL. IVP PRN (19:00)
[2020-09-06] MEDS ORDERED: oxyCODONE/APAP 5/325 1 TAB TABLET PO PRN ×2 (19:00)
[2020-09-06] MEDS ORDERED: CALCIUM CARBONATE 500 MG TAB.CHEW PO PRN (19:00)
[2020-09-06] MEDS ORDERED: ZOLPIDEM 5 MG TABLET. PO PRN (19:00)
[2020-09-06] MEDS ORDERED: ACETAMINOPHEN 325 MG TABLET. PO PRN (19:00)
[2020-09-06] MEDS ORDERED: HYDROmorphone 2 MG TABLET PO PRN (19:00)
[2020-09-06] MEDS ORDERED: ELECTROLYTE (NON-ICU) PROTOCOL. MC PRN (19:00)
[2020-09-06 20:15] VITALS: BP 158/66
--- NOTE | 2020-09-06 20:32 | PDOC1 ---
History and Physical Date of Service: DOS: DATE: 09/06/20 TIME: 20:24 Chief Complaint: Problems: (1) Hyperlipidemia (2) Hypertension (3) Breast cancer metastasized to bone (4) Anemia Chief Complain: SOB History of Present Illness: Reason for Visit: anemia HPI: Patient is a 64-year-old -[place] female presenting today at the request of her oncologist due to hemoglobin less than 7 on blood work obtained yesterday. Patient follows with a Dr. Lemus in [place] for breast cancer with bone mets. Patient said over the past week or so she had been feeling easily winded with minimal activity like walking up the stairs. She also noticed she had been eating a lot of ice coincidentally. Routine appointment with her oncologist yesterday revealed a low hemoglobin requiring transfusion causing her to present today. In the ER here hemoglobin found to be 6.9 and 1 unit packed red blood cells transfusion ordered. Reevaluated patient denying any sort of headache, vision changes, chest pain, abdominal pain, dizziness, joint or muscle pains. Past Medical/Surgical History: PMH/PSH: High Cholesterol, Hypertension, stage IV metastatic breast cancer status post mastectomy Allergies: Allergies: Coded Allergies: No Known Drug Allergies (Unverified , 01/22/17) Family History: Family History: Noncontributory Social History: Social History: Denies alcohol tobacco and drug use Current Medications: Current Medications Current Medications Ondansetron HCl (Zofran) 4 mg PRN Q6HRS PRN IVP NAUSEA/VOMITING; Start 09/06/20 at 19:00 Calcium Carbonate/ Glycine (Tums) 500 mg PRN Q3HRS PRN PO UPSET STOMACH; Start 09/06/20 at 19:00 Zolpidem Tartrate (Ambien) 5 mg PRN QHS PRN PO INSOMNIA, MAY REPEAT IN 1HR; Start 09/06/20 at 19:00 Info (Non-Icu Electrolyte Protocol) 1 ea PRN DAILY PRN MC SEE COMMENTS; Start 09/06/20 at 19:00 Oxycodone/ Acetaminophen (Percocet 5/325) 1 tab PRN Q4HRS PRN PO MILD PAIN, 1ST CHOICE; Start 09/06/20 at 19:00 Oxycodone/ Acetaminophen (Percocet 5/325) 2 tab PRN Q4HRS PRN PO MODERATE PAIN, SEVERE PAIN; Start 09/06/20 at 19:00 Hydromorphone HCl (Dilaudid) 2 mg PRN Q4HRS PRN PO MILD PAIN, MODERATE PAIN; Start 09/06/20 at 19:00 Hydromorphone HCl (Dilaudid) 4 mg PRN Q4HRS PRN PO SEVERE PAIN, 2ND CHOICE; Start 09/06/20 at 19:00 Acetaminophen (Tylenol) 650 mg PRN Q6HRS PRN PO Headaches, Temp > 101.5F; Start 09/06/20 at 19:00 Senna/Docusate Sodium (Senna Plus) 1 tab BID PO ; Start 09/06/20 at 21:00 Amlodipine Besylate (Norvasc) 10 mg DAILY PO ; Start 09/07/20 at 09:00 Aspirin (Aspirin Chewable) 81 mg DAILY PO ; Start 09/07/20 at 09:00 Cetirizine HCl (ZyrTEC) 10 mg DAILY PO ; Start 09/07/20 at 09:00 Atorvastatin Calcium (Lipitor) 5 mg QHS PO ; Start 09/06/20 at 21:00 Famotidine (Pepcid) 20 mg BID PO ; Start 09/06/20 at 21:00 Active Scripts Active Silvadene (Silver Sulfadiazine) 20 Gm Cream..g. 1 [place] TP DAILY 10 Days Silvadene (Silver Sulfadiazine) 20 Gm Cream..g. 1 [place] TP DAILY Zofran (Ondansetron Hcl) 4 Mg Tablet 4 Mg PO PRN TID PRN nausea/vomiting Percocet 5-325 Mg Tablet (Oxycodone/Acetaminophen) 1 Each Tablet 1-2 Tab PO Q6HRS PRN pain Reported Ibrance (Palbociclib) 125 Mg Capsule 125 Mg PO DAILY DAYS 1-21 Hydrocodone-Apap 5-325 (Hydrocodone Bit/Acetaminophen) 1 Each Tablet 1 Tab PO PRN Q6HRS PRN Femara (Letrozole) 2.5 Mg Tablet 2.5 Mg PO DAILY Loratadine 10 Mg Tablet 10 Mg PO DAILY Aspirin 81 Mg Tab.chew 81 Mg PO DAILY Ranitidine Hcl 150 Mg Tablet 150 Mg PO BID Lovastatin 20 Mg Tablet 20 Mg PO HS Amlodipine Besylate 10 Mg Tablet 10 Mg PO DAILY Lisinopril-Hctz 20-12.5 Mg Tab (Lisinopril/Hydrochlorothiazide) 1 Each Tablet 1 Tab PO DAILY ROS: Review of Systems Review of System Negative unless noted in HPI. Physical Exam: Vital Signs: Vital Signs Date Time Temp Pulse Resp B/P (MAP) Pulse Ox O2 Delivery O2 Flow Rate FiO2 09/06/20 19:06 94 146/60 (88) 100 Room Air 09/06/20 14:05 98.3 22 98.3 Physcial Exam: GEN: No apparent distress. Alert and oriented HEENT: Normal cephalic, atraumatic, external auditory canals are patent EYES: Extraocular muscles are intact, MUSCULOSKELETAL: Well developed , well nourished, good range of motion ENDOCRINE: No thyromegaly was palpated HEMATOPOIETIC: No bruising NECK: Supple, no JVD, no thyromegaly was noted LUNGS: Clear to auscultation in all lung lópez without rhonchi or wheezing HEART: RRR, S1, S2 present. Peripheral pulses intact, no obvious murmurs noted ABDOMEN: Soft, nontender mildly distended. Positive bowel sounds, no organomegaly, normal bowel sounds EXTREMITIES: Mild edema in lower extremities distally pedal pulses intact. NEUROLOGIC: Normal speech and tone. A&O x 3, moves all extremities, no obvious focal deficits PSYCHIATRIC: Normal affect, normal mood. Stable SKIN: No ulcerations or rashes, good skin turgor, no jaundice VASCULAR: Good capillary refill, neurovascular bundle appears to be intact Labs: Labs: Laboratory Tests Test 09/06/20 16:33 09/06/20 18:15 White Blood Count 1.5 x10^3/uL (4.0-11.0) Red Blood Count 1.81 x10^6/uL (3.50-5.40) Hemoglobin 6.9 g/dL (12.0-15.5) Hematocrit 20.0 % (36.0-47.0) Mean Corpuscular Volume 111 fL (79-100) Mean Corpuscular Hemoglobin 38 pg (25-35) Mean Corpuscular Hemoglobin Concent 35 g/dL (31-37) Red Cell Distribution Width 22.8 % (11.5-14.5) Platelet Count 194 x10^3/uL (140-400) Neutrophils (%) (Auto) 67 % (31-73) Lymphocytes (%) (Auto) 16 % (24-48) Monocytes (%) (Auto) 16 % (0-9) Eosinophils (%) (Auto) 1 % (0-3) Basophils (%) (Auto) 1 % (0-3) Neutrophils # (Auto) 1.0 x10^3/uL (1.8-7.7) Lymphocytes # (Auto) 0.2 x10^3/uL (1.0-4.8) Monocytes # (Auto) 0.2 x10^3/uL (0.0-1.1) Eosinophils # (Auto) 0.0 x10^3/uL (0.0-0.7) Basophils # (Auto) 0.0 x10^3/uL (0.0-0.2) Segmented Neutrophils % 60 % (35-66) Band Neutrophils % 12 % (0-9) Lymphocytes % 16 % (24-48) Monocytes % 12 % (0-10) Nucleated Red Blood Cells 2 Platelet Estimate Adequate (ADEQUATE) Polychromasia Slight Poikilocytosis Slight Anisocytosis Mod Macrocytosis Mod Sodium Level 140 mmol/L (136-145) Potassium Level 3.9 mmol/L (3.5-5.1) Chloride Level 103 mmol/L (98-107) Carbon Dioxide Level 27 mmol/L (21-32) Anion Gap 10 (6-14) Blood Urea Nitrogen 16 mg/dL (7-20) Creatinine 1.3 mg/dL (0.6-1.0) Estimated GFR (Cockcroft-Gault) 41.1 BUN/Creatinine Ratio 12 (6-20) Glucose Level 103 mg/dL (70-99) Calcium Level 8.9 mg/dL (8.5-10.1) Total Bilirubin 0.6 mg/dL (0.2-1.0) Aspartate Amino Transf (AST/SGOT) 16 U/L (15-37) Alanine Aminotransferase (ALT/SGPT) 20 U/L (14-59) Alkaline Phosphatase 75 U/L (46-116) Total Protein 7.2 g/dL (6.4-8.2) Albumin 3.6 g/dL (3.4-5.0) Albumin/Globulin Ratio 1.0 (1.0-1.7) Iron Level 70 ug/dL (50-170) Total Iron Binding Capacity 250 ug/dL (250-450) Iron Saturation 28 % (15-34) Laboratory Tests Test 09/06/20 16:33 09/06/20 18:15 White Blood Count 1.5 x10^3/uL (4.0-11.0) Red Blood Count 1.81 x10^6/uL (3.50-5.40) Hemoglobin 6.9 g/dL (12.0-15.5) Hematocrit 20.0 % (36.0-47.0) Mean Corpuscular Volume 111 fL (79-100) Mean Corpuscular Hemoglobin 38 pg (25-35) Mean Corpuscular Hemoglobin Concent 35 g/dL (31-37) Red Cell Distribution Width 22.8 % (11.5-14.5) Platelet Count 194 x10^3/uL (140-400) Neutrophils (%) (Auto) 67 % (31-73) Lymphocytes (%) (Auto) 16 % (24-48) Monocytes (%) (Auto) 16 % (0-9) Eosinophils (%) (Auto) 1 % (0-3) Basophils (%) (Auto) 1 % (0-3) Neutrophils # (Auto) 1.0 x10^3/uL (1.8-7.7) Lymphocytes # (Auto) 0.2 x10^3/uL (1.0-4.8) Monocytes # (Auto) 0.2 x10^3/uL (0.0-1.1) Eosinophils # (Auto) 0.0 x10^3/uL (0.0-0.7) Basophils # (Auto) 0.0 x10^3/uL (0.0-0.2) Segmented Neutrophils % 60 % (35-66) Band Neutrophils % 12 % (0-9) Lymphocytes % 16 % (24-48) Monocytes % 12 % (0-10) Nucleated Red Blood Cells 2 Platelet Estimate Adequate (ADEQUATE) Polychromasia Slight Poikilocytosis Slight Anisocytosis Mod Macrocytosis Mod Sodium Level 140 mmol/L (136-145) Potassium Level 3.9 mmol/L (3.5-5.1) Chloride Level 103 mmol/L (98-107) Carbon Dioxide Level 27 mmol/L (21-32) Anion Gap 10 (6-14) Blood Urea Nitrogen 16 mg/dL (7-20) Creatinine 1.3 mg/dL (0.6-1.0) Estimated GFR (Cockcroft-Gault) 41.1 BUN/Creatinine Ratio 12 (6-20) Glucose Level 103 mg/dL (70-99) Calcium Level 8.9 mg/dL (8.5-10.1) Total Bilirubin 0.6 mg/dL (0.2-1.0) Aspartate Amino Transf (AST/SGOT) 16 U/L (15-37) Alanine Aminotransferase (ALT/SGPT) 20 U/L (14-59) Alkaline Phosphatase 75 U/L (46-116) Total Protein 7.2 g/dL (6.4-8.2) Albumin 3.6 g/dL (3.4-5.0) Albumin/Globulin Ratio 1.0 (1.0-1.7) Iron Level 70 ug/dL (50-170) Total Iron Binding Capacity 250 ug/dL (250-450) Iron Saturation 28 % (15-34) Assessment/Plan Assessment/Plan Patient is a 64-year-old female presenting today due to low blood counts requiring transfusion. Macrocytic anemia, breast cancer with bone metastases, hypertension, hyperlipidemia -Hemoglobin on arrival 6.9; MCV 111 -We will transfuse 1 unit packed red blood cells will recheck hemoglobin in the morning, no apparent signs of bleeding -Iron panel and B12 ordered -Patient on oral medications for cancer treatment that she said she can provide while she is here -Resuming home medications as indicated -We will hold DVT prophylaxis due to anemia -Diet ordered -Suspect discharge in the morning I spent 10 minutes discussing CODE STATUS and advanced care planning with the patient. Justifications for Admission Other Justification SARAVANAN SOTOMAYOR MD Sep 06, 2020 20:31
[2020-09-06] MEDS ORDERED: ATORVASTATIN CALCIUM 10 MG TABLET. PO SCH (21:00)
[2020-09-06 21:55] VITALS: BP 158/66
[2020-09-06] MEDS: FAMOTIDINE 20 MG TABLET. PO SCH (22:00)
[2020-09-06] MEDS: SENNOSIDES/DOCUSATE 8.6/50MG TABLET. PO SCH (22:00)
[2020-09-06 22:10] VITALS: BP 144/68
[2020-09-06 23:00] VITALS: BP 110/44
[2020-09-07 03:00] VITALS: BP 134/48
[2020-09-07 06:00] LABS: HEMATOCRIT 22.4 % (36.0-47.0); HEMOGLOBIN 7.8 g/dL (12.0-15.5); RED BLOOD COUNT 2.16 x10^6/uL (3.50-5.40); RED CELL DISTRIBUTION WIDTH 26.1 % (11.5-14.5)
[2020-09-07 06:01] LABS: WHITE BLOOD COUNT 1.5 x10^3/uL (4.0-11.0)
[2020-09-07 07:00] VITALS: BP 132/49
--- NOTE | 2020-09-07 08:55 | PDOC3 ---
Discharge Summary Visit Information Date of Admission: Sep 06, 2020 Date of Discharge: Sep 07, 2020 Admitting Diagnosis: anemia Final Diagnosis Problems Medical Problems: (1) Anemia Status: Acute Brief Hospital Course Allergies Allergies Coded Allergies Type Severity Reaction Last Updated Verified No Known Drug Allergies 01/22/17 No Vital Signs Vital Signs Date Time Temp Pulse Resp B/P (MAP) Pulse Ox O2 Delivery O2 Flow Rate FiO2 09/07/20 03:00 97.6 77 18 134/48 (76) 97 Room Air 97.6 Lab Results Laboratory Tests Test 09/06/20 16:33 09/06/20 18:15 09/07/20 05:40 White Blood Count 1.5 x10^3/uL (4.0-11.0) 1.5 x10^3/uL (4.0-11.0) Red Blood Count 1.81 x10^6/uL (3.50-5.40) 2.16 x10^6/uL (3.50-5.40) Hemoglobin 6.9 g/dL (12.0-15.5) 7.8 g/dL (12.0-15.5) Hematocrit 20.0 % (36.0-47.0) 22.4 % (36.0-47.0) Mean Corpuscular Volume 111 fL (79-100) 104 fL (79-100) Mean Corpuscular Hemoglobin 38 pg (25-35) 36 pg (25-35) Mean Corpuscular Hemoglobin Concent 35 g/dL (31-37) 35 g/dL (31-37) Red Cell Distribution Width 22.8 % (11.5-14.5) 26.1 % (11.5-14.5) Platelet Count 194 x10^3/uL (140-400) 180 x10^3/uL (140-400) Neutrophils (%) (Auto) 67 % (31-73) Lymphocytes (%) (Auto) 16 % (24-48) Monocytes (%) (Auto) 16 % (0-9) Eosinophils (%) (Auto) 1 % (0-3) Basophils (%) (Auto) 1 % (0-3) Neutrophils # (Auto) 1.0 x10^3/uL (1.8-7.7) Lymphocytes # (Auto) 0.2 x10^3/uL (1.0-4.8) Monocytes # (Auto) 0.2 x10^3/uL (0.0-1.1) Eosinophils # (Auto) 0.0 x10^3/uL (0.0-0.7) Basophils # (Auto) 0.0 x10^3/uL (0.0-0.2) Segmented Neutrophils % 60 % (35-66) Band Neutrophils % 12 % (0-9) Lymphocytes % 16 % (24-48) Monocytes % 12 % (0-10) Nucleated Red Blood Cells 2 Platelet Estimate Adequate (ADEQUATE) Polychromasia Slight Poikilocytosis Slight Anisocytosis Mod Macrocytosis Mod Sodium Level 140 mmol/L (136-145) Potassium Level 3.9 mmol/L (3.5-5.1) Chloride Level 103 mmol/L (98-107) Carbon Dioxide Level 27 mmol/L (21-32) Anion Gap 10 (6-14) Blood Urea Nitrogen 16 mg/dL (7-20) Creatinine 1.3 mg/dL (0.6-1.0) Estimated GFR (Cockcroft-Gault) 41.1 BUN/Creatinine Ratio 12 (6-20) Glucose Level 103 mg/dL (70-99) Calcium Level 8.9 mg/dL (8.5-10.1) Total Bilirubin 0.6 mg/dL (0.2-1.0) Aspartate Amino Transf (AST/SGOT) 16 U/L (15-37) Alanine Aminotransferase (ALT/SGPT) 20 U/L (14-59) Alkaline Phosphatase 75 U/L (46-116) Total Protein 7.2 g/dL (6.4-8.2) Albumin 3.6 g/dL (3.4-5.0) Albumin/Globulin Ratio 1.0 (1.0-1.7) Iron Level 70 ug/dL (50-170) Total Iron Binding Capacity 250 ug/dL (250-450) Iron Saturation 28 % (15-34) Vitamin B12 Level 368 pg/mL (247-911) Laboratory Tests Test 09/06/20 16:33 09/06/20 18:15 09/07/20 05:40 White Blood Count 1.5 x10^3/uL (4.0-11.0) 1.5 x10^3/uL (4.0-11.0) Red Blood Count 1.81 x10^6/uL (3.50-5.40) 2.16 x10^6/uL (3.50-5.40) Hemoglobin 6.9 g/dL (12.0-15.5) 7.8 g/dL (12.0-15.5) Hematocrit 20.0 % (36.0-47.0) 22.4 % (36.0-47.0) Mean Corpuscular Volume 111 fL (79-100) 104 fL (79-100) Mean Corpuscular Hemoglobin 38 pg (25-35) 36 pg (25-35) Mean Corpuscular Hemoglobin Concent 35 g/dL (31-37) 35 g/dL (31-37) Red Cell Distribution Width 22.8 % (11.5-14.5) 26.1 % (11.5-14.5) Platelet Count 194 x10^3/uL (140-400) 180 x10^3/uL (140-400) Neutrophils (%) (Auto) 67 % (31-73) Lymphocytes (%) (Auto) 16 % (24-48) Monocytes (%) (Auto) 16 % (0-9) Eosinophils (%) (Auto) 1 % (0-3) Basophils (%) (Auto) 1 % (0-3) Neutrophils # (Auto) 1.0 x10^3/uL (1.8-7.7) Lymphocytes # (Auto) 0.2 x10^3/uL (1.0-4.8) Monocytes # (Auto) 0.2 x10^3/uL (0.0-1.1) Eosinophils # (Auto) 0.0 x10^3/uL (0.0-0.7) Basophils # (Auto) 0.0 x10^3/uL (0.0-0.2) Segmented Neutrophils % 60 % (35-66) Band Neutrophils % 12 % (0-9) Lymphocytes % 16 % (24-48) Monocytes % 12 % (0-10) Nucleated Red Blood Cells 2 Platelet Estimate Adequate (ADEQUATE) Polychromasia Slight Poikilocytosis Slight Anisocytosis Mod Macrocytosis Mod Sodium Level 140 mmol/L (136-145) Potassium Level 3.9 mmol/L (3.5-5.1) Chloride Level 103 mmol/L (98-107) Carbon Dioxide Level 27 mmol/L (21-32) Anion Gap 10 (6-14) Blood Urea Nitrogen 16 mg/dL (7-20) Creatinine 1.3 mg/dL (0.6-1.0) Estimated GFR (Cockcroft-Gault) 41.1 BUN/Creatinine Ratio 12 (6-20) Glucose Level 103 mg/dL (70-99) Calcium Level 8.9 mg/dL (8.5-10.1) Total Bilirubin 0.6 mg/dL (0.2-1.0) Aspartate Amino Transf (AST/SGOT) 16 U/L (15-37) Alanine Aminotransferase (ALT/SGPT) 20 U/L (14-59) Alkaline Phosphatase 75 U/L (46-116) Total Protein 7.2 g/dL (6.4-8.2) Albumin 3.6 g/dL (3.4-5.0) Albumin/Globulin Ratio 1.0 (1.0-1.7) Iron Level 70 ug/dL (50-170) Total Iron Binding Capacity 250 ug/dL (250-450) Iron Saturation 28 % (15-34) Vitamin B12 Level 368 pg/mL (247-911) Brief Hospital Course HPI from admission Patient is a 64-year-old -[place] female presenting today at the request of her oncologist due to hemoglobin less than 7 on blood work obtained yesterday. Patient follows with a Dr. Lemus in [place] for breast cancer with bone mets. Patient said over the past week or so she had been feeling easily winded with minimal activity like walking up the stairs. She also noticed she had been eating a lot of ice coincidentally. Routine appointment with her oncologist yesterday revealed a low hemoglobin requiring transfusion causing her to present today. In the ER here hemoglobin found to be 6.9 and 1 unit packed red blood cells transfusion ordered. Reevaluated patient denying any sort of headache, vision changes, chest pain, abdominal pain, dizziness, joint or muscle pains Patient was transfused 1u PRBC and hemoglobin improved to 7.8. Patient also reported feeling symptomatically better overall. No further needs or complain ts, she was discharged 09/07 Patient seen and examined the day of discharge. Discharge Information Condition at Discharge: Improved Disposition/Orders: D/C to Home Scheduled Amlodipine Besylate (Amlodipine Besylate) 10 Mg Tablet, 10 MG PO DAILY, (Reported) Entered as Reported by: KATHLEEN GALINDO on 12/10/161052 Last Action: Continued on 09/06/201954 by SARAVANAN SOTOMAYOR MD Aspirin (Aspirin) 81 Mg Tab.chew, 81 MG PO DAILY, (Reported) Entered as Reported by: KATHLEEN GALINDO on 12/10/16 105 Last Action: Continued on 09/06/201954 by SARAVANAN SOTOMAYOR MD Letrozole (Femara) 2.5 Mg Tablet, 2.5 MG PO DAILY, (Reported) Entered as Reported by: DARLENE HARRISON on 02/04/17 1051 Last Action: HELD on 09/06/201954 by SARAVANAN SOTOMAYOR MD Lisinopril/Hydrochlorothiazide (Lisinopril-Hctz 20-12.5 Mg Tab) 1 Each Tablet, 1 TAB PO DAILY, (Reported) Entered as Reported by: KATHLEEN GALINDO on 12/10/161052 Last Action: HELD on 09/06/201954 by SARAVANAN SOTOMAYOR MD Loratadine (Loratadine) 10 Mg Tablet, 10 MG PO DAILY, (Reported) Entered as Reported by: KATHLEEN GALINDO on 12/10/161052 Last Action: Converted on 09/06/201954 by SARAVANAN SOTOMAYOR MD Lovastatin (Lovastatin) 20 Mg Tablet, 20 MG PO HS, (Reported) Entered as Reported by: KATHLEEN GALINDO on 12/10/16 105 Last Action: Converted on 09/06/201954 by SARAVANAN SOTOMAYOR MD Palbociclib (Ibrance) 125 Mg Capsule, 125 MG PO daily days 1-21, (Reported) Entered as Reported by: DARLENE HARRISON on 04/03/17 1047 Last Action: HELD on 09/06/201954 by SARAVANAN SOTOMAYOR MD Ranitidine Hcl (Ranitidine Hcl) 150 Mg Tablet, 150 MG PO BID, (Reported) Entered as Reported by: KATHLEEN GALINDO on 12/10/16 105 Last Action: HELD on 09/06/201954 by SARAVANAN SOTOMAYOR MD Silver Sulfadiazine (Silvadene) 20 Gm Cream..g., 1 ENMA TP DAILY, #50 Prescribed by: EDUARD IBANEZ D.O. on 09/28/172017 Last Action: HELD on 09/06/201954 by SARAVANAN SOTOMAYOR MD Silver Sulfadiazine (Silvadene) 20 Gm Cream..g., 1 ENMA TP DAILY for 10 Days, #400 Ref 0 Prescribed by: DANTE OLVERA APRN on 09/30/17 1533 Last Action: HELD on 09/06/201954 by SARAVANAN SOTOMAYOR MD Scheduled PRN Hydrocodone Bit/Acetaminophen (Hydrocodone-Apap 5-325 ) 1 Each Tablet, 1 TAB PO PRN Q6HRS PRN for PAIN, (Reported) Entered as Reported by: DARLENE HARRISON on 02/04/17 1051 Last Action: HELD on 09/06/201954 by SARAVANAN SOTOMAYOR MD Ondansetron Hcl (Zofran) 4 Mg Tablet, 4 MG PO PRN TID PRN for NAUSEA/VOMITING, #15 nausea/vomiting Prescribed by: EDUARD IBANEZ D.O. on 09/28/172017 Last Action: HELD on 09/06/201954 by SARAVANAN SOTOMAYOR MD Oxycodone/Apap 5-325 (Percocet 5-325 Mg Tablet ) 1 Each Tablet, 1-2 TAB PO Q6HRS PRN for PAIN, #25 pain Prescribed by: EDUARD IBANEZ D.O. on 09/28/172017 Last Action: HELD on 09/06/201954 by SARAVANAN SOTOMAYOR MD Justicifation of Admission Dx: Justifications for Admission: Justification of Admission Dx: Yes (anemia) SARAVANAN SOTOMAYOR MD Sep 07, 2020 08:55
[2020-09-07] MEDS ORDERED: ASPIRIN CHEWABLE 81 MG TABLET. PO SCH (09:00)
[2020-09-07] MEDS ORDERED: CETIRIZINE HCL 10 MG TABLET. PO SCH (09:00)
[2020-09-07] MEDS: FAMOTIDINE 20 MG TABLET. PO SCH (09:58)
[2020-09-07] MEDS: SENNOSIDES/DOCUSATE 8.6/50MG TABLET. PO SCH (09:58)
[2020-09-07 11:00] VITALS: BP 138/43
--- NOTE | 2020-09-07 11:11 | NUR ---
SW following. Discussed with RN, pt from home, room air. Pt needs transportation home. RN obtaining cab pass for pt. No SW needs.
[2020-09-07] MEDS ORDERED: HEPARIN PF 500 UNIT/5 ML DISP.SYRIN. IVP ONE (14:00)
--- NOTE | 2020-09-07 15:19 | NUR ---
Pt was given all discharge instructions, follow up information, and teaching. Pt's port was heparin locked and deaccessed, pt is stable. All belongings left with pt at discharge and pt left at 1505 escorted via wheelchair by hospital transport team, and taken home. Pt returning home with self care. Pt will follow up with primary care provider in 1-2 weeks.
== END 2020-09-07 15:05 | disposition home or self-care (01) ==
LOC: ER 13:02 → 4 NORTH 18:44
PROVIDERS: ADMIT Student in an Organized Health Care Education/Training Program; ATTEND Student in an Organized Health Care Education/Training Program
DX: D64.9 Anemia, unspecified (principal); C79.51 Secondary malignant neoplasm of bone; E78.00 Pure hypercholesterolemia, unspecified; E78.5 Hyperlipidemia, unspecified; I10 Essential (primary) hypertension; Z85.3 Personal history of malignant neoplasm of breast; Z90.11 Acquired absence of right breast and nipple; Z98.51 Tubal ligation status; Z79.82 Long term (current) use of aspirin; Z79.811 Long term (current) use of aromatase inhibitors
CPT/HCPCS: 36415; 36430; 80053; 82607; 83540; 83550; 85007; 85025; 85027; 86850; 86900; 86901; 86920; 96374; 99284; G0378; J1642; P9016; G0379